=== PATIENT | female | born 1990 | race Caucasian/White ===

== ENCOUNTER 2017-05-30 20:39 | Inpatient (IN) | payer MEDICAID, OTHER ==
[~2017-05-30] VITALS: Ht 170.2 cm; Wt 102.0 kg
--- NOTE | 2017-05-31 04:06 | NUR ---
Nursing Admit note Patient arrival from [facility] at 0345. Pt transferred by S and arrived on unit via gurney with hospital security systems specialist. Pt CRISTINA r/t suicidal ideation. Pt was living at an [facility] facility where she was noted to become verbally aggressive to staff and responding to audio and visual hallucinations. Reported patient has been off her psychiatric medications for some time and reporting voices getting louder, racing thoughts and paranoia that her family in conspiring against her. Pt has been noted to be saving her urine and tampons and agitation. Pt arrival to unit oriented to room and to bed directly. CRISTINA on 05/30/17 at 2015. Patient pleasant and cooperative upon arrival.
[2017-05-31] MEDS ORDERED: Alum-Mag Hydrox-Simeth 30 mL Suspension PO PRN ×2 (04:20→12:25)
[2017-05-31] MEDS ORDERED: Benzocaine-Menthol Lozenge 2/Pkg PO PRN ×2 (04:20→12:25)
--- NOTE | 2017-05-31 06:22 | NUR ---
Night observations Pt arrived on unit in early hours of the morning. Pt briefly oriented to unit and provided with unit's scrubs. Pt's clothes were washed. Pt is oriented x3. Pt went to bed after brief orientation and appeared asleep from 0430- 0615. Pt is currently resting in bed. Staff completed 15 min close observations as ordered.
[2017-05-31 10:46] VITALS: BP 113/74; PULSE 92; RESP 18
[2017-05-31] MEDS ORDERED: Magnesium Hydroxide 10 mL Oral Concentration PO PRN (12:25)
[2017-05-31] MEDS ORDERED: HAL5 PO (13:03)
[2017-05-31] MEDS ORDERED: QUET300T44 PO (13:03)
[2017-05-31] MEDS ORDERED: LORA0.5T PO (13:03)
[2017-05-31] MEDS ORDERED: HYDR50TA76 PO (13:03)
[2017-05-31] MEDS ORDERED: BENZ1TAB7 PO (13:03)
--- NOTE | 2017-05-31 13:05 | HP ---
[address] [address] HISTORY AND PHYSICAL PATIENT: SANTA BARRETT : 1990 MR#: [id number] ADMIT: 05/31/2017 JOB ID: [id number] DATE OF SERVICE: 05/31/2017 IDENTIFICATION: This patient is a 26-year-old homeless white female currently living at a crisis center, phone number: [phone]. She has no source of income and is not on Disability. She reported that she is attempting to get on SSDI. She has a supportive mother and has been staying in the [facility]. REASON FOR ADMISSION: Client to the [facility] ER by the police department after the care center staff called concerning about violence as the client was agitated, yelling, and the staff felt threatened. When the police brought her to the emergency department, she complained of both suicidal ideation and psychosis. HISTORY OF PRESENT ILLNESS: Client presents today for evaluation and treatment of suicidal ideation and psychosis. I met with her for a 60 minute evaluation and reviewed course records kept by [facility] and [facility] staff as well [facility]. Client's main issue is poor coping. Co-occurring issues are complaints of psychosis, anxiety and depression with suicidal ideation. The condition has been present for the past 15 years. At present, it is of a severe intensity manifesting with symptoms of psychosis. The client is reportedly responding to internal stimuli, highly agitated, hearing command auditory hallucinations and wearing earplugs. She has been increasingly paranoid. She also complains of extremely high anxiety with symptoms of hyperarousal, avoidance of situations that cause her stress and intrusive recall of anxiety producing images. Finally, she complains of depression; more of an agitated depression stating when she cannot sleep, she starts having poor concentration, high guilt and has become suicidal. She had a severe suicide attempt approximately a year ago where she cut vertically on her left arm leaving a 12-13 inch deep scar. All the above symptoms are made worse when she does not take her medications (she has been off psychiatric medications for months and has only restarted in the past two months at the crisis center). It is also made much worse by drug use. She has been off methamphetamine and alcohol for the past two months but previously had been using heavily. She denies IV meth abuse. Finally, it is made worse by significant stress. She is finding that she does not have enough money or a way to make money, she has lost her friends and she is currently homeless. All of these are contributing making symptoms of depression, psychosis, anxiety and substance abuse worse. Physically she complaints to constitution, cardiac, respiratory, GI or genitourinary systems. She did have a positive UA for bacteria at [facility]. MEDICATIONS: 1. Seroquel 300 h.s. 2. Ativan 1 mg three times a day All per client report. ALLERGIES: None. ILLNESSES: None. FAMILY MEDICAL HISTORY: Noncontributory. PAST PSYCHIATRIC HISTORY: Client describes years of symptoms of depression and anxiety but states psychotic symptoms are new. She has been staying at the [facility] for the past two months. PSYCHOSOCIAL HISTORY: Client states she has one half-brother and one half-sister. Has no contact with her father but her mother is very supportive. 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 She states she has not worked for the past three years. History of trauma: Client minimized and avoided questions. Drug and alcohol use: One pack per day smoker. Previously heavy use of alcohol and meth but reports being off all substances for the past two months. Lethality: One suicide attempt approximately a year ago by wrist laceration. Currently complaining of suicidal ideation. Relationship history: Single. Catholic: None. Legal history: None. PHYSICAL EXAMINATION: Vital signs reviewed from [facility] ER physical exam and essentially normal. Urine test: Said it was ordered to [facility] but we do not have the results. Liver, electrolytes normal. CBC normal. UDS negative. MENTAL STATUS EXAMINATION: Client appeared exhausted, lying in bed with clean clothes. She had appropriate eye contact. Her behavior was lethargic and withdrawn. Attitude aloof and detached. Speech monotone, and had a difficult time hearing. Mood was dysphoric. Affect congruent. Normal intensity. Thought process: Client had a difficult time relating a coherent history. She was able to appreciate simple abstractions. She did not appear to be responding to internal stimuli. Thought content: Client describes suicidal ideation with a plan to cut her wrists. She describes auditory hallucinations, telling her she is no good and that she should complete the suicide. Client alert and oriented to person, place, and date. Immediate, short, and long-term memory intact. Attention and concentration relatively normal. Insight and judgment poor. Impulse control highly contained. Has a difficult time handling feelings of fear and anger. Reality testing: Client is having a difficult time distinguishing between inner and outer reality. Having moderate auditory hallucinations. Competence to handle current stressors is currently being overwhelmed. IMPRESSION: This patient is a 26-year-old, single, white female, currently homeless, who has been struggling with symptoms of polysubstance abuse and depression for 10 years. She now has symptoms of psychosis, appearing to have very poor impulse control, responding to internal stimuli, complaining of auditory hallucinations and paranoid delusions. She became agitated at the crisis center staff at to the point where police were called. In the ER, she asked for help but was detained as gravely disabled and a danger to self and others for suicidal ideation and ongoing psychotic symptoms. She reports being sober from methamphetamine and alcohol for two months. However her stressors have not decreased and she has not obtained better coping skills. She was using the alcohol and methamphetamine to cope; now she is not using these substances. She has very little way of handling her thoughts, anxieties or moods. The crisis center is invested in the patient as well as her mother. They are hoping that she can become stabilized on her meds and then get back to treatment. DIAGNOSES: AXIS I: 1. Psychosis, unspecified. 2. Alcohol abuse. 3. Methamphetamine abuse. AXIS II: Deferred. AXIS III: Rule out urinary tract infection. AXIS IV: Moderate. AXIS V: Current Global Assessment of Functioning equal to 35. PLAN: Recommend client be admitted to our unit and be provided with a high degree of safety, provided through the structure and active adult engagement she will receive from our staff. We will have her participate in one-to-one unit and group activities, focused on improving coping skills, reality based thinking and coming up with a safety plan should suicidal ideation recur as an outpatient. Will start the client on a combination of Seroquel 300 mg h.s. to target psychotic thought, depression and insomnia. Client is requesting a brief antianxiety agent while she is in the hospital for acute anxiety. We will start Klonopin 1 mg twice a day. Will repeat the UA to rule out urinary tract infection. Client is on a 72-hour involuntary treatment hold and I will likely petition the court for an additional 14.
--- NOTE | 2017-05-31 15:10 | NUR ---
Nursing Note [id number] Behavior S/O: Pt isolating to room today. States, "I need to think about things...what I'm going to do....I'll call my mother & my brother later today." Pt pleasant & cooperative. Conversation tracking clear & organized with normal rate & rhythm. Good eye contact. Pt cheeking clonazepam. She did swallow it when asked to. A: Pt needs evaluation for mental health. P: Provide supportive environment. Monitor medications & effects.
[2017-05-31] MEDS ORDERED: NITR100 PO (15:29)
[2017-05-31] MEDS: LORazepam 1 mg Tablet PO PRN (17:57)
[2017-05-31] MEDS: Nitrofurantoin Monohyd-Macrocryst 100 mg Capsule PO SCH (20:40)
--- NOTE | 2017-05-31 21:29 | NUR ---
OBSERVATIONS 0900 TO 2130 Pt was pleasant and cooperative with staff, isolative and antisocial. Pt appeared very anxious throughout most of the day, particularly in common areas. Pt came out of room for meals and snacks. Pt insisted on keeping earplugs shoved deep in her ears and was warned that she needed to be careful of her ear drums, she stated that noise makes her anxious so she likes to leave them in. Maintained Q15 checks for safety.
--- NOTE | 2017-05-31 22:56 | NUR ---
NURSING NOTE [id number] Mood: "pretty anxious" Affect: preoccupied, anxious Behavior: pt. mostly isolating this shift, came out several times to sit by herself for a few mins and then returned back to her room. Also out for meals. Pt. not interacting w/peers. No agitation and has been cooperative, however is visibly very anxious and restless. Pt. received 2 mg Ativan PRN @ 17:57, still visibly anxious upon reassessment and then given 50 mg Vistaril PRN at 19:32, both for 7/10 anxiety. Thought processes: anxious, disorganized, endorsed AH but did not want to tell this medical underwriter what the voices were saying. Denied SI.
--- NOTE | 2017-06-01 01:26 | NUR ---
Observations 1900 to 0700 Pt ate a snack. Pt agreed to sign admitting paperwork, but declined to have picture taken. Pt does appear highly anxious and internally preoccupied. Pt was observed laughing, talking to self. Pt spent most evening resting in bed or pacing unit. Pt was mildly social with peers. Pt appeared asleep at 2200 and has remained asleep. Pt respirations were observed when asleep. Staff completed 15 min close observations as ordered.
[2017-06-01] MEDS: Zolpidem 5 mg Tablet for FEMALE or >65YO PO PRN (02:18)
--- NOTE | 2017-06-01 05:44 | NUR ---
Nursing [id number] Pt asleep since shift started at 2300, came to common area once during the night to request food and than went back to sleep. Q 15min checks in place for safety.
[2017-06-01] MEDS: Nitrofurantoin Monohyd-Macrocryst 100 mg Capsule PO SCH ×2 (09:20→19:23)
[2017-06-01] MEDS: LORazepam 1 mg Tablet PO PRN ×2 (13:53→18:26)
--- NOTE | 2017-06-01 13:54 | NUR ---
Nursing Note [id number] Behavior S/O: Pt reported feeling anxious to [facility] early this afternoon. Talked with pt. She stated, "I'm fine. Everything is fine. I don't have hallucinations." She reports taking Seroquel 100 mg bid during the day at noon & with dinner, then 300-600 mg at HS. Pt visited with psychiatrist shortly after saying she was "fine" & was visibly upset & tremulous. Ativan 2 mg given to pt at 1330. Pt has ear plugs in her ears. A: Pt appears to responding to internal stimuli. P: Provide supportive environment. Monitor medications & effects.
--- NOTE | 2017-06-01 14:29 | PCM.PNPSY ---
Subjective Date of Service Jun 01, 2017 Subjective I spent 30 minutes both reviewing treatment plan with our clinical team, interviewing the patient and providing supportive/educational psychotherapy. I spent more than 50% of the time counseling the patient. I reviewed the treatment plan with the patient and discussed options available including the potential risks, benefits and side effects. Lin reports a slight worsening in thought organization and mood stability. Staff reports that she has been isolating and participating poorly in one-to- one unit and group activities. She slept 8 hours and complains of severe anxiety 8 out of 10 and marked symptoms of psychosis with paranoia auditory hallucinations and an exaggerated startle response. She is requesting more antipsychotic in order to help. She denies medication side effects. She was able to identify her medications and what they were used to treat. Current Medications Current Medications Clonazepam 1 mg BID PO Last administered on 06/01/17 09:19; Admin Dose 1 MG; Start 05/31/17 at 12:30 Hydroxyzine Pamoate 50 mg Q4H PRN PO Last administered on 05/31/17 19:32; Admin Dose 50 MG; Start 05/31/17 at 04:20 Lorazepam 1-2 MG Q4H PRN PO Last administered on 06/01/17 13:53; Admin Dose 2 MG; Start 05/31/17 at 04:20 Nicotine 1 patch DAILY TOPICAL Last administered on 06/01/17 09:19; Admin Dose 1 PATCH; Start 05/31/17 at 08:30 Nitrofurantoin 100 mg BID PO Last administered on 06/01/17 09:20; Admin Dose 100 MG; Start 05/31/17 at 20:30 Quetiapine Fumarate 300 mg DAILY PO Last administered on 06/01/17 09:17; Admin Dose 300 MG; Start 05/31/17 at 20:30 Zolpidem Tartrate 5 mg HS PRN PO Last administered on 06/01/17 02:18; Admin Dose 5 MG; Start 05/31/17 at 04:20 Mental Status Exam Appearance: Neat/well groomed Attitude: Pleasant, Cooperative Behavior: Tearful Affect: Labile Mood: Anxious, Fearful Thought Process/Associations: Goal Directed Speech Production: Soft Speech Rate: Lags/Latency Speech Articulation: Normal Thought Content: Somatic preoccupation, Obsessions/compulsions Danger to Self/Suicidal Ideati: None Danger to Others: None Delusions: Paranoid, Somatic Hallucinations: Auditory (Endorses) Consciousness: Hyper-vigilant Orientation: Person, Place, Date, Situation Memory: Grossly Intact Estimate Intellectual Function: Average Basis for IQ estimate: Awareness current events, Word use/vocabulary, Educational history, Employment history Attention/Concentration & Cogn: Impaired Cognitive Testing Method: Abstract Reasoning during interview, Proverb interpretation, Serial computations, Spelling forward & backward Insight: Limited Judgement: Limited Mental Health Plan This patient is a 26-year-old, single, white female, currently homeless, who has been struggling with symptoms of polysubstance abuse and depression for 10 years. She now has symptoms of psychosis, appearing to have very poor impulse control, responding to internal stimuli, complaining of auditory hallucinations and paranoid delusions. She became agitated at the crisis center staff at to the point where police were called. In the ER, she asked for help but was detained as gravely disabled and a danger to self and others for suicidal ideation and ongoing psychotic symptoms. She reports being sober from methamphetamine and alcohol for two months. However her stressors have not decreased and she has not obtained better coping skills. She was using the alcohol and methamphetamine to cope; now she is not using these substances. She has very little way of handling her thoughts, anxieties or moods. The crisis center is invested in the patient as well as her mother. They are hoping that she can become stabilized on her meds and then get back to treatment. Today she reports feeling worse and is asking for an increase of Seroquel and an antianxiety agent. [place] AXIS I: 1. Psychosis, unspecified. 2. Alcohol abuse. 3. Methamphetamine abuse. AXIS II: Deferred. AXIS III: Rule out urinary tract infection. AXIS IV: Moderate. AXIS V: Current Global Assessment of Functioning equal to 35. Medications Treatments Patient is being provided with a high degree of safety through our unit structure and active adult engagement provided by our mental health professionals, mental health technicians, psychiatric nurses and myself. We are focusing on developing improved coping skills and identifying stressors that may have led to current episode. We will attempt to: * Integrate into therapeutic groups, milieu and individual therapy. * Maintain in a closely monitored and structured unit * Provide low-stimulation environment * Obtain collateral data to assist in treatment planning * Assess degree of lability of affect and impulse control * Complete safety plan * Decrease frequency of relapse and need for re-hospitalization * Denies thoughts of harm to self and/or others * Establish a consistent sleep pattern * Medication effective in stabilization of mood and/or thought process * Reduce the risk of imminent harm to self and/or others by providing a safe environment * Tolerates medication without side effects Patient will be on the following psychiatric medications: Seroquel 100 mg twice a day and 300 at bedtime Klonopin 1 mg 3 times a day Nitrofurantoin 100 twice a day for urinary tract infection Education: Educate patient about recreational drug use as an etiology Educate about metabolic etiologies related to obesity Patient's legal status Patient is on a 72 involuntary treatment hold. Patient will be given the opportunity to talk to her radiation oncology nurse and the estate agent Anticipated number of hospital days to achieve above goals:7 Disposition: crisis center Steven Brown MD Jun 01, 2017 14:29
--- NOTE | 2017-06-01 18:15 | NUR ---
[facility] Day Shift Pt maintained behavioral control throughout the shift. Pt affect appears mostly flat, sad. Pt spends most of the shift resting in her room, citing anxiety as her reason for isolating. Pt appears more active on the unit in the evening, spending time sitting quietly in the dining room during dinner. Pt is appropriate with staff and peers when engaged, but is not overly social. Pt has not engaged in any unit activities at this time. Pt attended all meals and ate approx 60% of all meals.
--- NOTE | 2017-06-01 23:05 | NUR ---
NURSING NOTE [id number] Mood: "I have a lot of thoughts coming in, coming all around... it's a lot of thoughts" Affect: paranoid, pressured, anxious Behavior & Thought processes: pt. has been exhibiting paranoid behaviors all shift (e.g. eyes darting back and forth, wearing ear plugs, one outburst in dining room at 18:00 where she accused a staff member in the office of talking about her and called her a "fat bitch"-- able to calm down and maintain behavioral control w/reassurance from staff). She received Ativan 2 mg PRN and took her HS medications early. Pt. later took a shower.
[2017-06-02] MEDS: LORazepam 1 mg Tablet PO PRN ×3 (00:01→17:16)
[2017-06-02] MEDS: Zolpidem 5 mg Tablet for FEMALE or >65YO PO PRN ×2 (00:01→21:42)
--- NOTE | 2017-06-02 06:13 | NUR ---
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 Patient appeared disheveled. Patient was seen entering another patients room and was redirected by staff. Patient had difficulty with redirection and a few minutes later was seen entering this same patients room again, was asked to leave room and complied. Was given Ambien 5 mg and Ativan 2 mg at 0001. Returned to room and went to sleep at 0100 and remains asleep at current time with 5+ hours. Pt monitored q 15 minutes for safety, location and accountability.
[2017-06-02] MEDS: Nitrofurantoin Monohyd-Macrocryst 100 mg Capsule PO SCH ×2 (08:37→21:18)
[2017-06-02 09:00] VITALS: BP 117/80; PULSE 100
--- NOTE | 2017-06-02 14:26 | PCM.PNPSY ---
Subjective Date of Service Jun 02, 2017 Subjective I spent 30 minutes both reviewing treatment plan with our clinical team, interviewing the patient and providing supportive/educational psychotherapy. I spent more than 50% of the time counseling the patient. I reviewed the treatment plan with the patient and discussed options available including the potential risks, benefits and side effects. Lin reports a slight improvement in thought organization and mood stability. Staff reports that she has been isolating and participating poorly in one-to- one unit and group activities. She slept 5 hours and complains of continued high anxiety but a decrease in symptoms of psychosis (paranoia auditory hallucinations) and an exaggerated startle response. She is appreciating the current levels of psychiatric medications. She denies medication side effects. Current Medications Current Medications Nitrofurantoin 100 mg BID PO Last administered on 06/02/17 08:37; Admin Dose 100 MG; Start 05/31/17 at 20:30; Stop 06/04/17 at 20:30 Quetiapine Fumarate 100 mg 12,18 PO Last administered on 06/02/17 11:08; Admin Dose 100 MG; Start 06/01/17 at 18:00 Quetiapine Fumarate 300 mg DAILY PO Last administered on 06/01/17 19:22; Admin Dose 300 MG; Start 05/31/17 at 20:30; Stop 06/02/17 at 12:41; Status DC Mental Status Exam Vital Signs Vital Signs Date Time Temp Pulse Resp B/P Pulse Ox O2 Delivery O2 Flow Rate FiO2 06/02/17 09:00 36.2 100 117/80 Appearance: Neat/well groomed Attitude: Pleasant, Cooperative Behavior: Tearful Affect: Labile Mood: Anxious, Fearful Thought Process/Associations: Goal Directed Speech Production: Soft Speech Rate: Lags/Latency Speech Articulation: Normal Thought Content: Somatic preoccupation, Obsessions/compulsions Danger to Self/Suicidal Ideati: None Danger to Others: None Delusions: Paranoid, Somatic Hallucinations: Auditory (Endorses) Consciousness: Hyper-vigilant Orientation: Person, Place, Date, Situation Memory: Grossly Intact Estimate Intellectual Function: Average Basis for IQ estimate: Awareness current events, Word use/vocabulary, Educational history, Employment history Attention/Concentration & Cogn: Impaired Cognitive Testing Method: Abstract Reasoning during interview, Proverb interpretation, Serial computations, Spelling forward & backward Insight: Limited Judgement: Limited Mental Health Plan This patient is a 26-year-old, single, white female, currently homeless, who has been struggling with symptoms of polysubstance abuse and depression for 10 years. She now has symptoms of psychosis, appearing to have very poor impulse control, responding to internal stimuli, complaining of auditory hallucinations and paranoid delusions. She became agitated at the crisis center staff at to the point where police were called. In the ER, she asked for help but was detained as gravely disabled and a danger to self and others for suicidal ideation and ongoing psychotic symptoms. She reports being sober from methamphetamine and alcohol for two months. However her stressors have not decreased and she has not obtained better coping skills. She was using the alcohol and methamphetamine to cope; now she is not using these substances. She has very little way of handling her thoughts, anxieties or moods. The crisis center is invested in the patient as well as her mother. They are hoping that she can become stabilized on her meds and then get back to treatment. Today she reports mild improvement in thought organization and mood stability. She believes that the Seroquel and antianxiety medications are helping. [place] AXIS I: 1. Psychosis, unspecified. 2. Alcohol abuse. 3. Methamphetamine abuse. AXIS II: Deferred. AXIS III: Rule out urinary tract infection. AXIS IV: Moderate. AXIS V: Current Global Assessment of Functioning equal to 35. Medications Treatments Patient is being provided with a high degree of safety through our unit structure and active adult engagement provided by our mental health professionals, mental health technicians, psychiatric nurses and myself. We are focusing on developing improved coping skills and identifying stressors that may have led to current episode. We will attempt to: * Integrate into therapeutic groups, milieu and individual therapy. * Maintain in a closely monitored and structured unit * Provide low-stimulation environment * Obtain collateral data to assist in treatment planning * Assess degree of lability of affect and impulse control * Complete safety plan * Decrease frequency of relapse and need for re-hospitalization * Denies thoughts of harm to self and/or others * Establish a consistent sleep pattern * Medication effective in stabilization of mood and/or thought process * Reduce the risk of imminent harm to self and/or others by providing a safe environment * Tolerates medication without side effects Patient will be on the following psychiatric medications: Seroquel 100 mg twice a day and 300 at bedtime Klonopin 1 mg 3 times a day Nitrofurantoin 100 twice a day for urinary tract infection 5 days then discontinue up Education: Educate patient about recreational drug use as an etiology Educate about metabolic etiologies related to obesity Patient's legal status Patient is on a 72 involuntary treatment hold. Patient will be given the opportunity to talk to her patient financial services coordinator and the demonstrator sales Anticipated number of hospital days to achieve above goals:7 Disposition: crisis center Steven Brown MD Jun 02, 2017 14:26
--- NOTE | 2017-06-02 15:06 | NUR ---
Nursing 0700 to 1500 S/O: Lin requested medication at 0800. When ther was clarification needed about her seroquel med order, she acted upset. After receiving 1200 dose of seroquel, she calmed considerably, sleeping in the early afternoon. At lunch, before seroquel took effect, she became upset and tossed her drink. At 1300, although she had been sleeping, she complained of feeling anxious (at 8/10) and received Ativan 2 mg 1302. Effect: She then fell asleep again. Acknowledged . 'Not bad" Did not cheek meds today. Asked at 1250, Can I come out of my room now? for no apparent reason. When com writer was talking to her, she could not follow what was being explained. May have been attending to at same time. Wants arrangements made with crisis center before discharge. A: Psychotic sx. . P: Continue to assess for effect of scheduled meds. i Addendum: 06/02/17 at 1513 by CHRIS VIEYRA RN Amended: Links added.
--- NOTE | 2017-06-02 15:39 | NUR ---
Crew Truck Driver/Counselor S:" The voices are not to the point of needing medications." O: Patient denies any SI or HI, stated she has auditory hallucinations, rated her anxiety and depression at a 4. Patient did not state what the voices were saying. A: Patient is cooperative but tangential. Patient has stayed in her room for most of the day, but was pleasant and cooperative. P: Follow care plan and coordinate with outpatient providers.
--- NOTE | 2017-06-02 20:38 | NUR ---
Obs Dayshift Pt is paranoid, edgy w/ slight aggression when talking w/ staff. Pt appears to be responding to IS, answers my questions w/ questions. Pt spends much of her time standing in the hallway watching staff and peers. Most requests are around getting more food. Little engagement w/ peers. Good ADL's, Good meals
--- NOTE | 2017-06-02 22:45 | NUR ---
NURSING NOTE [id number] Mood: "I think I'm anxious, like, my mom isn't taking care of my brother so I'm thinking about that" Affect: paranoid, slightly pressured Behavior: pt. continues to be paranoid, this evening after other pts had gone to bed she was going up and listening with her ear against their doors. She complied w/staff's request to stop w/out issue. She has been increasingly social w/peers. She makes frequent requests for anxiety medications and does appear visibly anxious. Pt. given PRN Ativan 2 mg and Vistaril 50 mg this shift as well as PRN Ambien 5 mg. Thought processes: disorganized, delusional at times, paranoid. Denies AH/VH/SI/HI.
[2017-06-03 01:00] VITALS: BP 127/82; PULSE 103; RESP 18
--- NOTE | 2017-06-03 05:50 | NUR ---
Pt asleep at start of shift. At 0000 room checks were done and pt was not in her room. Unit was searched with security present and she was found in a male peers room crouched in a dark bathroom. When asked why she was there she stated I needed some hand financial institution president and I didnt want to bother anyone. Pt has been reminded multiple times not to enter this peers rooms and continues to disregard unit policy and boundaries. Staff positioned in hallway to monitor pts location further. Monitored pt. with 15 minute face checks for safety, location and accountability
[2017-06-03] MEDS: Nitrofurantoin Monohyd-Macrocryst 100 mg Capsule PO SCH ×2 (08:44→20:47)
--- NOTE | 2017-06-03 12:26 | PCM.PNPSY ---
Subjective Date of Service Jun 03, 2017 Subjective I spent 30 minutes both reviewing treatment plan with our clinical team, interviewing the patient and providing supportive/educational psychotherapy. I spent more than 50% of the time counseling the patient. I reviewed the treatment plan with the patient and discussed options available including the potential risks, benefits and side effects. Lin repeats feeling a slight improvement in thought organization and mood stability. Staff reports that she has been isolating and participating poorly in one-to-one unit and group activities. She slept 5 hours and complains of continued high anxiety but a decrease in symptoms of psychosis (paranoia auditory hallucinations) and an exaggerated startle response. She is appreciating the current levels of psychiatric medications. She denies medication side effects. Current Medications Current Medications Quetiapine Fumarate 100 mg 12,18 PO Last administered on 06/02/17 17:14; Admin Dose 100 MG; Start 06/01/17 at 18:00 Quetiapine Fumarate 300 mg HS PO Last administered on 06/02/17 21:18; Admin Dose 300 MG; Start 06/02/17 at 21:00 Mental Status Exam Appearance: Neat/well groomed Attitude: Pleasant, Cooperative Behavior: No unusual behavior Affect: Well Modulated/Appropriate Mood: Anxious, Fearful Thought Process/Associations: Logical/Sequential, Goal Directed Speech Production: Normal Speech Rate: Normal Speech Articulation: Normal Thought Content: Somatic preoccupation, Obsessions/compulsions Danger to Self/Suicidal Ideati: None Danger to Others: None Delusions: Paranoid, Somatic Consciousness: Hyper-vigilant Orientation: Person, Place, Date, Situation Memory: Grossly Intact Estimate Intellectual Function: Average Basis for IQ estimate: Awareness current events, Word use/vocabulary, Educational history, Employment history Attention/Concentration & Cogn: Impaired Cognitive Testing Method: Abstract Reasoning during interview, Proverb interpretation, Serial computations, Spelling forward & backward Insight: Limited Judgement: Limited Mental Health Plan This patient is a 26-year-old, single, white female, currently homeless, who has been struggling with symptoms of polysubstance abuse and depression for 10 years. She now has symptoms of psychosis, appearing to have very poor impulse control, responding to internal stimuli, complaining of auditory hallucinations and paranoid delusions. She became agitated at the crisis center staff at to the point where police were called. In the ER, she asked for help but was detained as gravely disabled and a danger to self and others for suicidal ideation and ongoing psychotic symptoms. She reports being sober from methamphetamine and alcohol for two months. However her stressors have not decreased and she has not obtained better coping skills. She was using the alcohol and methamphetamine to cope; now she is not using these substances. She has very little way of handling her thoughts, anxieties or moods. The crisis center is invested in the patient as well as her mother. They are hoping that she can become stabilized on her meds and then get back to treatment. Today she reports mild improvement in thought organization and mood stability. She believes that the Seroquel and antianxiety medications are helping. She appeared much more alert and interactive. She appears to have had an approximately 50% improvement. [place] AXIS I: 1. Psychosis, unspecified. 2. Alcohol abuse. 3. Methamphetamine abuse. AXIS II: Deferred. AXIS III: Rule out urinary tract infection. AXIS IV: Moderate. AXIS V: Current Global Assessment of Functioning equal to 35. Medications Treatments Patient is being provided with a high degree of safety through our unit structure and active adult engagement provided by our mental health professionals, mental health technicians, psychiatric nurses and myself. We are focusing on developing improved coping skills and identifying stressors that may have led to current episode. We will attempt to: * Integrate into therapeutic groups, milieu and individual therapy. * Maintain in a closely monitored and structured unit * Provide low-stimulation environment * Obtain collateral data to assist in treatment planning * Assess degree of lability of affect and impulse control * Complete safety plan * Decrease frequency of relapse and need for re-hospitalization * Denies thoughts of harm to self and/or others * Establish a consistent sleep pattern * Medication effective in stabilization of mood and/or thought process * Reduce the risk of imminent harm to self and/or others by providing a safe environment * Tolerates medication without side effects Patient will be on the following psychiatric medications: Seroquel 100 mg twice a day and 300 at bedtime Klonopin 1 mg 3 times a day Nitrofurantoin 100 twice a day for urinary tract infection 5 days then discontinue up Education: Educate patient about recreational drug use as an etiology Educate about metabolic etiologies related to obesity Patient's legal status Patient is on a 72 involuntary treatment hold. Patient will be given the opportunity to talk to her leather tacker and the private branch exchange service adviser on Friday Anticipated number of hospital days to achieve above goals:7 Disposition: crisis center Steven Brown MD Jun 03, 2017 12:26
[2017-06-03] MEDS: LORazepam 1 mg Tablet PO PRN ×2 (12:42→17:32)
--- NOTE | 2017-06-03 14:48 | NUR ---
Nursing 7a-3p Pt presents with confusion and agitation today stating "I don't know what the f*ck is going on! I am going to lose it! I don't know if my brother is safe!" Pt unable to state why she is afraid for her brother. She received Ativan 2mg po prn and Vistaril 50mg po prn for agitation. She is unable to tolerate excess stimulation and has isolated in her room for most of the day except for meals and to have her needs met. Medication helpful with no further emotional outbursts this shift.
--- NOTE | 2017-06-03 14:50 | NUR ---
Circulation Assistant/Counselor S:"I want my f*cking meds, now!" O:Patient denies any SI or HI, states she hears the voices but did not specify. Rated her anxiety and depression at a 3-4. A: Patient volatile and angry while waiting for medications. Responding to internal stimuli. Shouting and yelling. P: Follow care plan and coordinate with outpatient providers.
--- NOTE | 2017-06-03 17:31 | NUR ---
Obs Dayshift Pt is irritable, labile, negative. Pt spends most of her day in her room or in the doorway watching staff and peers. Pt is internally preoccupied, verbally aggressive, slightly threatening tone and attitude toward some peers and staff. Pt is not participating in any activities on the unit. Poor ADL's, Good meals
[2017-06-03] MEDS: Zolpidem 5 mg Tablet for FEMALE or >65YO PO PRN (20:49)
--- NOTE | 2017-06-03 22:12 | NUR ---
NURSING NOTE [id number] Mood: "anxious" Affect: pressured, paranoid, distracted at times Behavior: visible in milieu off and on, otherwise isolating to room. Requested a PRN for anxiety at dinner time and received 2 mg Ativan for 9/10 anxiety. Also asked for PRN Ambien and Vistaril 50 mg @ HS. Med compliant. Thought processes: pt continues to have paranoid ideation re: her mother and brother as well as peers on the unit. Pt. hovers near this literary writer when this literary writer attempts to have conversations w/other pts as if to eavesdrop. However, pt. has been redirectable at these times. Pt. has worn earplugs all shift. Occasional delayed responses. Disorganized thinking and tangential.
[2017-06-04] MEDS: LORazepam 1 mg Tablet PO PRN ×5 (03:19→22:08)
--- NOTE | 2017-06-04 06:03 | NUR ---
Nursing Note Mail Room Clerk 11pm-7am Patient awake and out in milieu at start of shift. Patient restless, intermittently pacing hallway. At 0310 patient came out to dining room, stating she was very anxious and couldn't sleep due to having court tomorrow. Patient stated her senior attorney was going to court for her and she wanted to sleep until after court was over. Patient was given Ativan 2 mg and Vistaril 50 mg at 0319 with good effect. Patient awoke at 0530, pacing hallway. Patient was noted to be in bed asleep from [id number] and [id number]. Pt monitored q 15 minutes for safety, location and accountability.
[2017-06-04] MEDS: Nitrofurantoin Monohyd-Macrocryst 100 mg Capsule PO SCH ×2 (08:30→20:41)
[2017-06-04 12:30] VITALS: BP 118/76; PULSE 104
--- NOTE | 2017-06-04 13:07 | NUR ---
Nursing:"I'm sorry I went on in front of everyone. I'm just nervous about court..I want meds. I want to be put to sleep. I want Haldol...that's on my med list..." Lorazepam was given at the beginning of the shift with mild effect. Pt has been med focused but fairly directable. She denies any SI/HI or thought disturbance but she at times appears to responding to internal stimuli or at least hypervigilant: "I've learned to read lips real well because I wear these earplugs" as she glances around watching others. She describes her mood as "Pretty good" She says "I think I'll be here a couple of weeks, but I need a plan. I [facility] to get into a [facility] an [facility]. I came in here to get my mind right then I need referrals for when I leave."Pt sleeping after her noon Seroquel
--- NOTE | 2017-06-04 14:04 | PCM.PNPSY ---
Subjective Date of Service Jun 04, 2017 Subjective I spent 30 minutes both reviewing treatment plan with our clinical team, interviewing the patient and providing supportive/educational psychotherapy. I spent more than 50% of the time counseling the patient. I reviewed the treatment plan with the patient and discussed options available including the potential risks, benefits and side effects. Lin repeats feeling a slight improvement in thought organization and mood stability. Staff reports that she has been more active and is now attempting to participate in one-to-one unit and group activities. She slept well but complains of continued high anxiety. She reports a marked decrease in symptoms of psychosis (paranoia auditory hallucinations). She is appreciating the current levels of psychiatric medications. She denies medication side effects. Current Medications Current Medications Quetiapine Fumarate 300 mg HS PO Last administered on 06/03/17t 20:48; Admin Dose 300 MG; Start 06/02/17 at 21:00 Mental Status Exam Vital Signs Vital Signs Date Time Temp Pulse Resp B/P Pulse Ox O2 Delivery O2 Flow Rate FiO2 06/04/17 12:30 36.7 104 118/76 Appearance: Neat/well groomed Attitude: Pleasant, Cooperative Behavior: No unusual behavior Affect: Well Modulated/Appropriate Mood: Anxious, Fearful Thought Process/Associations: Logical/Sequential, Goal Directed Speech Production: Normal Speech Rate: Normal Speech Articulation: Normal Thought Content: Somatic preoccupation, Obsessions/compulsions Danger to Self/Suicidal Ideati: None Danger to Others: None Delusions: Paranoid, Somatic Consciousness: Hyper-vigilant Orientation: Person, Place, Date, Situation Memory: Grossly Intact Estimate Intellectual Function: Average Basis for IQ estimate: Awareness current events, Word use/vocabulary, Educational history, Employment history Attention/Concentration & Cogn: Impaired Cognitive Testing Method: Abstract Reasoning during interview, Proverb interpretation, Serial computations, Spelling forward & backward Insight: Limited Judgement: Limited Mental Health Plan This patient is a 26-year-old, single, white female, currently homeless, who has been struggling with symptoms of polysubstance abuse and depression for 10 years. She now has symptoms of psychosis, appearing to have very poor impulse control, responding to internal stimuli, complaining of auditory hallucinations and paranoid delusions. She became agitated at the crisis center staff at to the point where police were called. In the ER, she asked for help but was detained as gravely disabled and a danger to self and others for suicidal ideation and ongoing psychotic symptoms. She reports being sober from methamphetamine and alcohol for two months. However her stressors have not decreased and she has not obtained better coping skills. She was using the alcohol and methamphetamine to cope; now she is not using these substances. She has very little way of handling her thoughts, anxieties or moods. The crisis center is invested in the patient as well as her mother. They are hoping that she can become stabilized on her meds and then get back to treatment. Today she repeats that she feels improvement in thought organization and mood stability. She believes that the Seroquel and antianxiety medications are helping. She appeared much more alert and interactive. [place] AXIS I: 1. Psychosis, unspecified. 2. Alcohol abuse. 3. Methamphetamine abuse. AXIS II: Deferred. AXIS III: Rule out urinary tract infection. AXIS IV: Moderate. AXIS V: Current Global Assessment of Functioning equal to 35. Medications Treatments Patient is being provided with a high degree of safety through our unit structure and active adult engagement provided by our mental health professionals, mental health technicians, psychiatric nurses and myself. We are focusing on developing improved coping skills and identifying stressors that may have led to current episode. We will attempt to: * Integrate into therapeutic groups, milieu and individual therapy. * Maintain in a closely monitored and structured unit * Provide low-stimulation environment * Obtain collateral data to assist in treatment planning * Assess degree of lability of affect and impulse control * Complete safety plan * Decrease frequency of relapse and need for re-hospitalization * Denies thoughts of harm to self and/or others * Establish a consistent sleep pattern * Medication effective in stabilization of mood and/or thought process * Reduce the risk of imminent harm to self and/or others by providing a safe environment * Tolerates medication without side effects Patient will be on the following psychiatric medications: Seroquel 100 mg twice a day and 300 at bedtime Klonopin 1 mg 3 times a day Nitrofurantoin 100 twice a day for urinary tract infection 5 days then discontinue Education: Educate patient about recreational drug use as an etiology Educate about metabolic etiologies related to obesity Patient's legal status Patient is on a 14 day involuntary treatment hold entered 06/04/2017 Anticipated number of hospital days to achieve above goals:7 Disposition: crisis center Steven Brown MD Jun 04, 2017 14:04
--- NOTE | 2017-06-04 18:40 | NUR ---
Observations 0700 - 1900 Pt affect, thought process, mood was paranoid, hyperverbal, scattered, anxious and med seeking. Pt was in and out of her room most of the shift. Pt was pleasant, polite and cooperative when approached. Pt was inappropriate a couple times but was able to be redirected. Pt was social with select peers. Pt was observed to be responding to internal stimuli. Pt attended meals in D.R. and ate 100% of her meals. Pt ate snacks. Pt took a shower and attended to ADL's. Pt was observed every 15 minutes through the shift as ordered.
[2017-06-04] MEDS: Zolpidem 5 mg Tablet for FEMALE or >65YO PO PRN ×2 (20:41→22:08)
--- NOTE | 2017-06-04 21:58 | NUR ---
NURSING NOTE [id number] Mood: "anxious" Affect: paranoid, moments of brightness and smiling in conversation Behavior: med-seeking, focused on wanting Haldol ordered and when asked why she wanted Haldol she stated "it makes me feel like I'm on something" and laughed. Pt. still showing some paranoid behaviors (e.g. prolonged, suspicious stares at select peers) but showing much improvement in that she is more social and engaged w/some of her peers and visible in milieu all shift. Thought processes: scattered, paranoid, endorses anxiety and makes frequent requests for PRNs. Denies AH/VH. No SI.
--- NOTE | 2017-06-05 04:14 | NUR ---
nursing, nights, 11-7 s/o- has appeared to sleep after 2345 during q 15 minute assessments. a- no apparent distress. p- monitor behavior/emotional state, quality, times and amount of sleep, use and effect of medication. ruth ann
[2017-06-05] MEDS: LORazepam 1 mg Tablet PO PRN ×4 (05:49→18:00)
[2017-06-05 08:00] VITALS: BP 121/76; PULSE 106; RESP 19
--- NOTE | 2017-06-05 14:04 | PCM.PNPSY ---
Subjective Date of Service Jun 05, 2017 Subjective I spent 30 minutes both reviewing treatment plan with our clinical team, interviewing the patient and providing supportive/educational psychotherapy. I spent more than 50% of the time counseling the patient. I reviewed the treatment plan with the patient and discussed options available including the potential risks, benefits and side effects. Lin repeats feeling a worsening in her thought organization and mood stability. Staff reports that she has been more active and is now attempting to participate in one-to-one unit and group activities. She slept 6 hours but complains of continued high anxiety. She reports feeling an increase in symptoms of psychosis (paranoia auditory hallucinations). She is asking for a stronger antipsychotic to be added to her medications. We reviewed the relative risks benefits and side effects of half a combination of Haldol and Seroquel. She appeared to understand the relative risks versus relative benefits. She denies medication side effects. Current Medications Current Medications Zolpidem Tartrate 5-10 MG HS PRN PO Last administered on 06/04/17t 22:08; Admin Dose 5 MG; Start 06/04/17 at 21:55 Mental Status Exam Vital Signs Vital Signs Date Time Temp Pulse Resp B/P Pulse Ox O2 Delivery O2 Flow Rate FiO2 06/05/17 08:00 35.9 106 19 121/76 Appearance: Neat/well groomed Attitude: Pleasant, Cooperative Behavior: No unusual behavior Affect: Well Modulated/Appropriate Mood: Anxious, Fearful Thought Process/Associations: Logical/Sequential, Goal Directed Speech Production: Normal Speech Rate: Normal Speech Articulation: Normal Thought Content: Somatic preoccupation, Obsessions/compulsions Danger to Self/Suicidal Ideati: None Danger to Others: None Delusions: Paranoid, Somatic Consciousness: Hyper-vigilant Orientation: Person, Place, Date, Situation Memory: Grossly Intact Estimate Intellectual Function: Average Basis for IQ estimate: Awareness current events, Word use/vocabulary, Educational history, Employment history Attention/Concentration & Cogn: Impaired Cognitive Testing Method: Abstract Reasoning during interview, Proverb interpretation, Serial computations, Spelling forward & backward Insight: Limited Judgement: Limited Mental Health Plan This patient is a 26-year-old, single, white female, currently homeless, who has been struggling with symptoms of polysubstance abuse and depression for 10 years. She now has symptoms of psychosis, appearing to have very poor impulse control, responding to internal stimuli, complaining of auditory hallucinations and paranoid delusions. She became agitated at the crisis center staff at to the point where police were called. In the ER, she asked for help but was detained as gravely disabled and a danger to self and others for suicidal ideation and ongoing psychotic symptoms. She reports being sober from methamphetamine and alcohol for two months. However her stressors have not decreased and she has not obtained better coping skills. She was using the alcohol and methamphetamine to cope; now she is not using these substances. She has very little way of handling her thoughts, anxieties or moods. The crisis center is invested in the patient as well as her mother. They are hoping that she can become stabilized on her meds and then get back to treatment. Today she reports feeling a worsening in her thought organization and mood stability. She believes that the Seroquel and antianxiety medications are helping but is asking for the addition of Haldol which is helped in the past. [place] AXIS I: 1. Psychosis, unspecified. 2. Alcohol abuse. 3. Methamphetamine abuse. AXIS II: Deferred. AXIS III: Rule out urinary tract infection. AXIS IV: Moderate. AXIS V: Current Global Assessment of Functioning equal to 35. Medications Treatments Patient is being provided with a high degree of safety through our unit structure and active adult engagement provided by our mental health professionals, mental health technicians, psychiatric nurses and myself. We are focusing on developing improved coping skills and identifying stressors that may have led to current episode. We will attempt to: * Integrate into therapeutic groups, milieu and individual therapy. * Maintain in a closely monitored and structured unit * Provide low-stimulation environment * Obtain collateral data to assist in treatment planning * Assess degree of lability of affect and impulse control * Complete safety plan * Decrease frequency of relapse and need for re-hospitalization * Denies thoughts of harm to self and/or others * Establish a consistent sleep pattern * Medication effective in stabilization of mood and/or thought process * Reduce the risk of imminent harm to self and/or others by providing a safe environment * Tolerates medication without side effects Patient will be on the following psychiatric medications: Change Seroquel to 300 at bedtime Change Klonopin to 1 mg twice a day Add Haldol 5 mg twice a day Education: Educate patient about recreational drug use as an etiology Educate about metabolic etiologies related to obesity Patient's legal status Patient is on a 14 day involuntary treatment hold entered 06/04/2017 Anticipated number of hospital days to achieve above goals:7 Disposition: crisis center Steven Brown MD Jun 05, 2017 14:03
--- NOTE | 2017-06-05 14:44 | NUR ---
NURSE NOTE DAY Mood: Endorse depression and anxiety (05/15). Affect: Labile. Thought Process/Content: Disorganized. Paranoid. Behavior: "I'm under investigation as a federal snitch." Frequent requests of staff. Distractible, disorganized. Delusional, paranoid. Denies SI, HI. Denies AH, VH. PRNs/NURS: PRNs hydroxyzine 50 mg at 0930 and 1330; lorazepam 2 mg at 1000, 1400; acetaminophen 650 mg. at 1000 and 1400.
--- NOTE | 2017-06-05 16:13 | NUR ---
Observations 0700 to 1900 Pt attended and participated in community meeting. Pt did not attend recreational activities. Pt ate a snack. Pt spends free time pacing unit and swarming nurses station for various demands. Pt unable to focus energy to any one activity. Pt is loud, intrusive in other pts care and unable to follow units policy of not going into other pts room. Pt is overly flirtacious with peers. Pts speech is pressured. Breakfast: 75%. Lunch: 100%. Staff completed 15 min close observations as ordered.
--- NOTE | 2017-06-05 18:15 | NUR ---
Hog Feeder/Counselor: S: "Don't make a big thing out of nothing!" O: Patient slept 5.5 hours last night per staff. Patient denies S/I and H/I. She also denies auditory and visual hallucinations. Depression and anxiety were not rated.. A: Patient is cooperative, anxious, irritable, paranoid, suspicious, limited insight, limited judgment. P: Follow the care plan, coordinate with out-patient providers, monitor behavior.
[2017-06-05] MEDS: Zolpidem 5 mg Tablet for FEMALE or >65YO PO PRN (20:40)
--- NOTE | 2017-06-05 23:09 | NUR ---
NURSE NOTE EVENING SHIFT [id number]: Pt has been hyper-verbal, and med-seeking today. Pt has been especially friendly with a male Pt, being reminded by staff several times to not go into each others rooms or touching. Pt has spent most of the shift in the milieu, interacting with others. Pt has had safe behavior, but negative attitude at times. Pt monitored q15 min. for safety, location and accountability.
--- NOTE | 2017-06-06 04:13 | NUR ---
nursing, nights, 11-7 s- they put me on a new med. i need juice. i need food. my back hurts. i have a urinary track infection. i hurt bad. i need tylenol. i need ativan. can i have some hot packs. why can't i have ativan. i need two hot packs. o- has appeared to sleep after 2315. up at 0200 with above requests. appeared drowsy and unhappy with staff declining to give ativan. received 650 mg of tylenol at 0200 and hot packs. returned to bed and appeared to sleep after 0230. assessed q 15 minutes. a- interupted sleep, demanding, histrionic, med seeking, no apparent physical distress. p- monitor behavior/emotional state, quality, times and amount of sleep, use and effect of medication. ruth ann
[2017-06-06 09:35] VITALS: BP 118/77; PULSE 98; RESP 16
--- NOTE | 2017-06-06 13:15 | PCM.PNPSY ---
Subjective Date of Service Jun 06, 2017 Subjective I spent 30 minutes both reviewing treatment plan with our clinical team, interviewing the patient and providing supportive/educational psychotherapy. I spent more than 50% of the time counseling the patient. I reviewed the treatment plan with the patient and discussed options available including the potential risks, benefits and side effects. Lin repeats feeling a slight improvement in her thought organization and mood stability. Staff reports that she has been more active and is now attempting to participate in one-to-one unit and group activities. She slept 5 hours but complains of continued high anxiety. She reports feeling a decrease in symptoms of psychosis (paranoia auditory hallucinations) since starting twice a day Haldol. She denies medication side effects. Current Medications Current Medications Haloperidol 5 mg ,16 PO Last administered on 06/06/17 09:49; Admin Dose 5 MG; Start 06/05/17 at 16:00 Zolpidem Tartrate 5-10 MG HS PRN PO Last administered on 06/05/17 20:40; Admin Dose 10 MG; Start 06/04/17 at 21:55 Mental Status Exam Appearance: Neat/well groomed Attitude: Pleasant, Cooperative Behavior: No unusual behavior Affect: Well Modulated/Appropriate Mood: Anxious, Fearful Thought Process/Associations: Logical/Sequential, Goal Directed Speech Production: Normal Speech Rate: Normal Speech Articulation: Normal Thought Content: Somatic preoccupation, Obsessions/compulsions Danger to Self/Suicidal Ideati: None Danger to Others: None Delusions: Paranoid, Somatic Hallucinations: Auditory (Endorses) Consciousness: Hyper-vigilant Orientation: Person, Place, Date, Situation Memory: Grossly Intact Estimate Intellectual Function: Average Basis for IQ estimate: Awareness current events, Word use/vocabulary, Educational history, Employment history Attention/Concentration & Cogn: Impaired Cognitive Testing Method: Abstract Reasoning during interview, Proverb interpretation, Serial computations, Spelling forward & backward Insight: Limited Judgement: Limited Mental Health Plan This patient is a 26-year-old, single, white female, currently homeless, who has been struggling with symptoms of polysubstance abuse and depression for 10 years. She now has symptoms of psychosis, appearing to have very poor impulse control, responding to internal stimuli, complaining of auditory hallucinations and paranoid delusions. She became agitated at the crisis center staff at to the point where police were called. In the ER, she asked for help but was detained as gravely disabled and a danger to self and others for suicidal ideation and ongoing psychotic symptoms. She reported being sober from methamphetamine and alcohol for two months prior to admission. However her stressors have not decreased and she has not obtained better coping skills. She was using the alcohol and methamphetamine to cope; now she is not using these substances. She has very little way of handling her thoughts, anxieties or moods. The crisis center is invested in the patient as well as her mother. They are hoping that she can become stabilized on her meds and then get back to treatment. Today she reports feeling a slight improvement in her thought organization and mood stability. She believes that the addition of Haldol is helping.. [place] AXIS I: 1. Psychosis, unspecified. 2. Alcohol abuse. 3. Methamphetamine abuse. AXIS II: Deferred. AXIS III: Rule out urinary tract infection. AXIS IV: Moderate. AXIS V: Current Global Assessment of Functioning equal to 35. Medications Treatments Patient is being provided with a high degree of safety through our unit structure and active adult engagement provided by our mental health professionals, mental health technicians, psychiatric nurses and myself. We are focusing on developing improved coping skills and identifying stressors that may have led to current episode. We will attempt to: * Integrate into therapeutic groups, milieu and individual therapy. * Maintain in a closely monitored and structured unit * Provide low-stimulation environment * Obtain collateral data to assist in treatment planning * Assess degree of lability of affect and impulse control * Complete safety plan * Decrease frequency of relapse and need for re-hospitalization * Denies thoughts of harm to self and/or others * Establish a consistent sleep pattern * Medication effective in stabilization of mood and/or thought process * Reduce the risk of imminent harm to self and/or others by providing a safe environment * Tolerates medication without side effects Patient will be on the following psychiatric medications: Seroquel to 300 at bedtime Klonopin to 1 mg twice a day Haldol 5 mg twice a day Education: Educate patient about recreational drug use as an etiology Educate about metabolic etiologies related to obesity Patient's legal status Patient is on a 14 day involuntary treatment hold entered 06/04/2017 Anticipated number of hospital days to achieve above goals: Recommend patient remained for an additional 5-7 days to stabilize Disposition: crisis center Steven Brown MD Jun 06, 2017 13:15
--- NOTE | 2017-06-06 17:42 | NUR ---
Observations 0700 - 1900 Pt was in her room most of the shift. Pt was pleasant, polite and cooperative when approached. Pt was inappropriate a couple times but was able to be redirected. Pt was social with select peers. Pt was observed to be responding to internal stimuli. Pt attended meals in D.R. and ate 100% of her meals. Pt ate snacks. Pt maintained behavior throughout the shift other than being in another patients room. Pt was observed every 15 minutes through the shift as ordered.
--- NOTE | 2017-06-06 18:30 | NUR ---
Nursing Notes [id number] S: "I am burning when I pee, I was on an antibiotic". O: Patient isolative, feels she is doing better now that I have slept some. Asleep much of the day. A: Blunted/flat, isolative. P: Monitor for safety and response to treatment. Follow plan of care.
[2017-06-06] MEDS: LORazepam 1 mg Tablet PO PRN (18:48)
--- NOTE | 2017-06-06 20:16 | NUR ---
Mirror [employer] Supervisor/Counselor: S: "The haldol helps!" O: Patient slept 4.75 hours last night per staff. Patient denies S/I and H/I. She also denies auditory and visual hallucinations. Depression and anxiety were not rated. When asked her mood, patient stated, "I feel alright." Patient is a lot less paranoid today. A: Patient is cooperative, anxious, irritable, less paranoid, less suspicious, limited insight, limited judgment. P: Follow the care plan, coordinate with out-patient providers, monitor behavior.
[2017-06-06] MEDS: Zolpidem 5 mg Tablet for FEMALE or >65YO PO PRN (22:01)
--- NOTE | 2017-06-07 06:54 | NUR ---
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 Monitor with q 15 minute face checks for safety, location and accountability
[2017-06-07] MEDS: LORazepam 1 mg Tablet PO PRN ×2 (10:44→17:36)
[2017-06-07 11:17] LABS: APPEARANCE,URINE HAZY (CLEAR,HAZY); COLOR,URINE YELLOW (YELLOW); OCCULT BLOOD,URINE NEGATIVE (NEGATIVE); UROBILINOGEN,URINE NORMAL (NORMAL)
[2017-06-07 14:15] VITALS: BP 126/78; PULSE 99; RESP 15
--- NOTE | 2017-06-07 15:55 | PCM.PNPSY ---
Subjective Date of Service Jun 07, 2017 Subjective The patient reports that she is "good, tired. A little depressed because I am here on my birthday." Patient does report that she received a small birthday cake. She reports that following depression in the . She received sertraline 50 mg which she felt was helpful for her depression. She also reports that it was helpful for her focus and attention. Although requesting "something for ADHD" the patient responded to a discussion regarding the difficulty in prescribing dopaminergic medications in the context of psychosis. The patient also reported left hip pain several months duration and demonstrated an audible clicking noise with flexion. We discussed simplification of her medication regimen and the patient was agreeable. No side effects reported. Sleep: 8 hours. Appetite: "A lot better" Suicidal and homicidal ideation: Denies Auditory hallucinations: Denies Visual hallucinations: Denies Other Psychotic Symptoms: N/A Anxiety: 0/10 Depression: 7/10 Current Medications Current Medications Haloperidol 5 mg 09,16 PO Last administered on 06/07/17 08:31; Admin Dose 5 MG; Start 06/05/17 at 16:00 Ibuprofen 400 mg Q6H PRN PO Last administered on 06/06/17 18:47; Admin Dose 400 MG; Start 06/06/17 at 20:00 Mental Status Exam Appearance: Neat/well groomed Attitude: Pleasant, Cooperative Behavior: No unusual behavior Affect: Well Modulated/Appropriate Mood: Dysthymic Thought Process/Associations: Logical/Sequential, Goal Directed Speech Production: Normal Speech Rate: Normal Speech Articulation: Normal Thought Content: Somatic preoccupation Danger to Self/Suicidal Ideati: None Danger to Others: None Delusions: Paranoid, Somatic Hallucinations: Auditory (Denies), Visual (Denies) Consciousness: Somnolent (mildly) Orientation: Person, Place, Date, Situation Memory: Grossly Intact Estimate Intellectual Function: Average Basis for IQ estimate: Word use/vocabulary, Educational history, Employment history Attention/Concentration & Cogn: Impaired Insight: Limited Judgement: Limited Mental Health Plan The patient is a 26-year-old, single female with substance use and depression for the last 10 years. The patient was admitted with signs of psychosis with poor impulse control, responding to internal stimuli, auditory hallucinations, and paranoid delusions. She became agitated at the crisis center staff to the point where police were called. In the ER, she was detained as gravely disabled and a danger to self and others for suicidal ideation and ongoing psychotic symptoms. The patient had previously been using alcohol and methamphetamine as a coping mechanism but has been reportedly sober for the last 2 months. Once stabilized the patient will go back into treatment. The patient reports needing both Haldol and quetiapine. Due to the sedation we discussed consolidating quetiapine at bedtime and later in the day and the patient was agreeable. The patient would also like to restart Zoloft and given her long history of depression this may help to reduce her use of antipsychotics. There does not appear to be a significant risk of manic flipping. [place] AXIS I: 1. Psychosis, unspecified. 2. Alcohol use disorder in partial remission 3. Methamphetamine use disorder in partial remission Depressive disorder unspecified by history AXIS II: Deferred. AXIS III: Rule out urinary tract infection. AXIS IV: Moderate. AXIS V: Current Global Assessment of Functioning equal to 35. Treatments 1. The patient is admitted to the inpatient unit and will be provided a safe and secure environment. 2. The patient is denying current active suicidality and is not in need of a one-to-one at this time. 3. The patient is encouraged to participate with group and milieu activities. 4. The patient will be seen by the treatment team on a daily basis to assess symptoms, side effects and response to treatment. 5. Change quetiapine to 100 mg at 4 PM and 400 mg nightly. 6. Continue other medications as written. 7. Sertraline 50 mg daily for depression. 8. Hospitalist page for consultation regarding hip pain, awaiting callback. 9. Anticipated length of stay is 5-7 days. Alirio Munoz MD Jun 07, 2017 15:55 Education: Educate patient about recreational drug use as an etiology Educate about metabolic etiologies related to obesity Patient's legal status Patient is on a 14 day involuntary treatment hold entered 06/04/2017 Anticipated number of hospital days to achieve above goals: Recommend patient remained for an additional 5-7 days to stabilize Disposition: crisis center Alirio Munoz MD Jun 07, 2017 15:55
--- NOTE | 2017-06-07 16:49 | NUR ---
Observations 1900 to 0700 Pt ate a snack. Pt spent much of shift resting in room. Pt showered and had clothes washed. She was also mildly social with peers. A birthday cake was sent up from kitchen for her birthday. Pt stated her mom is going to mail her some belongings. Pt maintained behavioral control and showed no signs of abnormal behavior. Pt respirations were observed when asleep. Staff completed 15 min close observations as ordered.
--- NOTE | 2017-06-07 18:49 | NUR ---
Nursing Notes [id number] S:O: Patient asking multiple staff and refused a 3rd breakfast, patient then angry, stomped down hallway, slammed door and then screamed in room. May have been seen coming from a male patients room early this morning. A: Isolative, manipulative, attempting to staff split. P: Monitor for safety and response to treatment. Follow plan of care. Addendum: 06/07/17 at 1849 by SHARAN DIAS RN PRWinter 10:45 Ativan 1 mg po for anxiety. Effective. Vistaril 50 mg po for anxiety. Effective.
[2017-06-07] MEDS: Zolpidem 5 mg Tablet for FEMALE or >65YO PO PRN ×2 (20:18→20:56)
--- NOTE | 2017-06-07 21:56 | NUR ---
Nurses Note Evening "I have toilet paper in my ear,I need a tweezer to get it out." Patient denied pain or discomfort,no evidence of a foreign body was found. Patients' thoughts have been scattered and focused on medications requesting medications almost hourly. She has been mumbling under her breathe talking to herself. Patient has been social with peers at times. Will reality test as tolerated,encourage improved coping skills. Addendum: 06/07/17 at 4174 by BERTHA HOLLINGSWORTH RN Amended: Links added.
--- NOTE | 2017-06-08 04:34 | NUR ---
nursing, nights, 11-7 s- will you make her give me something to eat ? can i have something for sleep ? o- has appeared to sleep after 0. came to staff at 0300 and received 50 mg of vistaril. appeared to sleep after 0330. assessed q 15 minutes. a- no apparent distress. p- monitor behavior/emotional state, quality, times and amount of sleep, use and effect of medication. ruth ann
[2017-06-08 10:00] VITALS: BP 130/80; PULSE 103; RESP 16
[2017-06-08] MEDS: LORazepam 1 mg Tablet PO PRN (11:52)
--- NOTE | 2017-06-08 13:45 | NUR ---
Vistaril 50mg po prn requested and given for anxiety rated 5/10.
--- NOTE | 2017-06-08 14:45 | PCM.PNPSY ---
Subjective Date of Service Jun 08, 2017 Subjective The patient reports, "I am tired and I am to wake up more." She also reports that her mood is overall improved. She reported to nursing staff that she stuffed toilet paper into her ear, nursing staff could not see any paper and the patient declined examination at this time. The patient reports that she would like to go to a group home upon discharge. She reports that she is still irritable and feeling depressed and that she needs the medication to begin to work a little bit. She denies side effects to medications. Sleep: 7.5 hours Appetite: "Okay" Suicidal and homicidal ideation: Denies Auditory hallucinations: Denies Visual hallucinations: Denies Other Psychotic Symptoms: Easily irritated/irritable Anxiety: "Don't have any yet" Depression: "Still there" 5-6/10 Current Medications Current Medications Ibuprofen 400 mg Q6H PRN PO Last administered on 06/07/17 19:22; Admin Dose 400 MG; Start 06/06/17 at 20:00 Quetiapine Fumarate 400 mg HS PO Last administered on 06/07/17 20:12; Admin Dose 400 MG; Start 06/07/17 at 21:00 Sertraline HCl 50 mg DAILY PO Last administered on 06/08/17 08:48; Admin Dose 50 MG; Start 06/08/17 at 08:30 Mental Status Exam Vital Signs Vital Signs Date Time Temp Pulse Resp B/P Pulse Ox O2 Delivery O2 Flow Rate FiO2 06/08/17 10:00 36.1 103 16 130/80 Appearance: Neat/well groomed Attitude: Cooperative (mildly irritable) Behavior: No unusual behavior Affect: Well Modulated/Appropriate Mood: Irritable, Dysthymic Thought Process/Associations: Logical/Sequential, Goal Directed Speech Production: Normal Speech Rate: Normal Speech Articulation: Normal Thought Content: Somatic preoccupation Danger to Self/Suicidal Ideati: None Danger to Others: None Delusions: Paranoid, Somatic Hallucinations: Auditory (Denies), Visual (Denies) Consciousness: Somnolent (mildly) Orientation: Person, Place, Date, Situation Memory: Grossly Intact Estimate Intellectual Function: Average Basis for IQ estimate: Word use/vocabulary, Educational history, Employment history Attention/Concentration & Cogn: Impaired Insight: Limited Judgement: Limited Mental Health Plan The patient is a 26-year-old, single female with substance use and depression for the last 10 years. The patient was admitted with signs of psychosis with poor impulse control, responding to internal stimuli, auditory hallucinations, and paranoid delusions. She became agitated at the crisis center staff to the point where police were called. In the ER, she was detained as gravely disabled and a danger to self and others for suicidal ideation and ongoing psychotic symptoms. The patient had previously been using alcohol and methamphetamine as a coping mechanism but has been reportedly sober for the last 2 months. Once stabilized the patient will go back into treatment. The patient reports needing both Haldol and quetiapine. Due to the sedation we discussed consolidating quetiapine at bedtime and later in the day and the patient was agreeable. The patient reports no side effects to the sertraline but also no significant change in her depression. The patient would like to be discharged group home but we discussed the possibility of crisis respite and she was agreeable to at least investigating this option. The patient declined physical exam as noted above. [place] AXIS I: 1. Psychosis, unspecified. 2. Alcohol use disorder in partial remission 3. Methamphetamine use disorder in partial remission 4. Depressive disorder unspecified by history AXIS II: Deferred. AXIS III: None acute AXIS IV: Moderate. AXIS V: Current Global Assessment of Functioning equal to 40. Medications Hydroxyzine 50 mg every 4 hours when necessary anxiety or agitation Lorazepam 1-2 mg every 4 hours when necessary anxiety or agitation Nicotine 21 mg patch daily + commit lozenge Clonazepam 0.5 mg twice daily Haloperidol 5 mg at 9 and 4 PM Sertraline 50 mg daily Zolpidem 5-10 mg nightly as needed Treatments 1. The patient is admitted to the inpatient unit and will be provided a safe and secure environment. 2. The patient is denying current active suicidality and is not in need of a one-to-one at this time. 3. The patient is encouraged to participate with group and milieu activities. 4. The patient will be seen by the treatment team on a daily basis to assess symptoms, side effects and response to treatment. 5. Decrease clonazepam to 0.5 mg twice daily in preparation for discharge 6. Continue other medications as written. 7. Hospitalist paged her for consultation regarding hip pain, recommends referral to outpatient PT for hip pain. 8. Anticipated length of stay is 5-7 days. Alirio Munoz MD Jun 08, 2017 14:45
--- NOTE | 2017-06-08 18:22 | NUR ---
Nursing Notes [id number] S: "I am not awake enough to know yet". O: Patient not wanting to talk to staff-reporting she just woke up-but then goes right back to bed. Multiple attempts made this shift. Anxiety 12/13. Reports that she is unable to rate depression or head ache pain. Denied SI/HI or hallucinations. A: Blunted, medication focused. P: Monitor for safety and response to treatment. Follow plan of care. Addendum: 06/08/17 at 1822 by SHARAN DIAS RN [place] 11:52 Ativan 1 mg po for anxiety 12/13. 14:45 Vistaril 50 mg po for anxiety patient unable to rate. Motrin 400mg for headache pain patient unable to rate.
--- NOTE | 2017-06-08 21:13 | NUR ---
Observations 0900 - 2130 Pt affect and mood was anxious, isolative, guarded, withdrawn and irritable at times. Pt was in her room most of the shift. Pt was pleasant, polite and cooperative when approached for the most part. Pt speech was rambling and pressured. Pt eye contact was good. Pt was social with select peers. Pt was preoccupied and was observed to be responding to internal stimuli. Pt attended meals in D.R. and ate 100% of her meals. Pt ate snacks. Pt declined coming to community meeting. Pt refused to set a daily goal. Pt was observed every 15 minutes through the shift as ordered.
[2017-06-08] MEDS: Zolpidem 5 mg Tablet for FEMALE or >65YO PO PRN (21:15)
--- NOTE | 2017-06-09 06:04 | NUR ---
Nursing Note Outcomes Manager 7pm-7am Patient was asleep in room at start of shift. She came out to dining room for evening snack and HS medications at 2114, and returned to room. Patient affect was flat. Returned to med room door at 2129 with complaints of a toothache and requested ibuprofen. Was given 400 mg Motrin at 2133 and returned to room and went to sleep. Patient slept 8.75+ hours. Pt monitored q 15 minutes for safety, location and accountability.
[2017-06-09 12:47] VITALS: BP 121/76; PULSE 101; RESP 16
[2017-06-09] MEDS: LORazepam 1 mg Tablet PO PRN ×3 (12:53→18:16)
--- NOTE | 2017-06-09 12:54 | NUR ---
PRN Medication Pt requested and received Tylenol 650 mg po prn for mouth pain rated 8/10. She also requested and received Ativan 1mg po prn for felt anxiety.
--- NOTE | 2017-06-09 14:59 | NUR ---
Nursing Dayshift: S: "I'm really anxious." O: Patient has been complaining of increased anxiety today receiving Ativan 1 mg PO twice at 1253 and at 1432 with minimal effectiveness. C/o a headache and received Tylenol 650 mg at 1253 with effective relief per patient. Good appetite at meals. Has been making needs known. Showered today. Out of her room more this afternoon. A: Isolative. Responding to IS. P: CPOC. Monitor mood and behavior.
--- NOTE | 2017-06-09 15:29 | PCM.PNPSY ---
Subjective Date of Service Jun 09, 2017 Subjective The patient reports that she is doing better but still not ready for discharge. She reports that she is still fairly depressed and sertraline has not had sufficient time to work or to determine its efficacy. Patient would like to get back to work but is not sure how to manage having any mental illness or needing follow-up. Discussed the recommendation to pursue crisis respite and the patient was agreeable. The patient denies side effects. Sleep: 7.75 hours, "fine" Appetite: Decreased somewhat but accepted by patient. Suicidal and homicidal ideation: Denies Auditory hallucinations/Visual hallucinations: Denies Other Psychotic Symptoms: Some irritability Anxiety: 7/10 this morning, 3-01/13 following lorazepam. Depression: 03/15 Current Medications Current Medications Clonazepam 0.5 mg BID PO Last administered on 06/09/17 08:57; Admin Dose 0.5 MG ; Start 06/08/17 at 20:30 Quetiapine Fumarate 100 mg 16 PO Last administered on 06/08/17 16:38; Admin Dose 100 MG; Start 06/08/17 at 16:00 Quetiapine Fumarate 400 mg HS PO Last administered on 06/08/17 21:10; Admin Dose 400 MG; Start 06/07/17 at 21:00 Sertraline HCl 50 mg DAILY PO Last administered on 06/09/17 08:57; Admin Dose 50 MG; Start 06/08/17 at 08:30 Mental Status Exam Vital Signs Vital Signs Date Time Temp Pulse Resp B/P Pulse Ox O2 Delivery O2 Flow Rate FiO2 06/09/17 12:47 36.4 101 16 121/76 Appearance: Neat/well groomed Attitude: Cooperative Behavior: Overtly anxious (rocking) Affect: Well Modulated/Appropriate Mood: Dysthymic, Anxious Thought Process/Associations: Logical/Sequential, Goal Directed Speech Production: Normal Speech Rate: Normal Speech Articulation: Normal Thought Content: Negativistic (mildly) Danger to Self/Suicidal Ideati: None Danger to Others: None Delusions: Paranoid, Somatic Hallucinations: Auditory (Denies), Visual (Denies) Consciousness: Alert Orientation: Person, Place, Date, Situation Memory: Grossly Intact Estimate Intellectual Function: Average Basis for IQ estimate: Word use/vocabulary, Educational history, Employment history Attention/Concentration & Cogn: Impaired Insight: Limited (but improving) Judgement: Limited (but improving) Mental Health Plan The patient is a 26-year-old, single female with substance use and depression for the last 10 years. The patient was admitted with signs of psychosis with poor impulse control, responding to internal stimuli, auditory hallucinations, and paranoid delusions. She became agitated at the crisis center staff to the point where police were called. In the ER, she was detained as gravely disabled and a danger to self and others for suicidal ideation and ongoing psychotic symptoms. The patient had previously been using alcohol and methamphetamine as a coping mechanism but has been reportedly sober for the last 2 months. Once stabilized the patient will go back into treatment. The patient reports needing both Haldol and quetiapine. Due to the sedation we discussed consolidating quetiapine at bedtime and later in the day and the patient was agreeable. The patient reports no side effects to the sertraline but also no significant change in her depression. The patient would like to stabilize further prior to discharge to crisis respite. Discussed having outpatient follow-up for her left hip issues per hospitalist recommendation. Patient is agreeable with this plan. [place] AXIS I: 1. Psychosis, unspecified. 2. Alcohol use disorder in partial remission 3. Methamphetamine use disorder in partial remission 4. Depressive disorder unspecified by history AXIS II: Deferred. AXIS III: None acute AXIS IV: Moderate. AXIS V: Current Global Assessment of Functioning equal to 40. Medications Hydroxyzine 50 mg every 4 hours when necessary anxiety or agitation Lorazepam 1-2 mg every 4 hours when necessary anxiety or agitation Nicotine 21 mg patch daily + commit lozenge Clonazepam 0.5 mg twice daily Haloperidol 5 mg at 9 and 4 PM Sertraline 50 mg daily Zolpidem 5-10 mg nightly as needed Treatments 1. The patient is admitted to the inpatient unit and will be provided a safe and secure environment. 2. The patient is denying current active suicidality and is not in need of a one-to-one at this time. 3. The patient is encouraged to participate with group and milieu activities. 4. The patient will be seen by the treatment team on a daily basis to assess symptoms, side effects and response to treatment. 5. Decrease clonazepam to 0.5 mg twice daily in preparation for discharge 6. Continue other medications as written. 7. Hospitalist recommends referral to outpatient/PT for hip pain. 8. Anticipated length of stay is 5-7 days. Alirio Munoz MD Jun 09, 2017 15:29
--- NOTE | 2017-06-09 17:10 | NUR ---
Observations 0900 - 1730 Pt affect and mood was anxious, isolative, guarded and unsocial. Pt was in her room most of the morning and out in milieu in the late afternoon. Pt was pleasant, polite and cooperative when approached. Pt speech and eye contact was good. Pt was social with select peers but mostly kept to herself. Pt attended meals in D.R. and ate 100% of her meals. Pt ate snacks. Pt declined coming to community meeting. Pt refused to set a daily goal. Pt took a shower and attended to ADL's. Pt was observed every 15 minutes through the shift as ordered.
--- NOTE | 2017-06-09 17:19 | NUR ---
Cubing Machine Tender/Counselor S:"I don't want to go to an [facility]. I want to go to a jail where I can eat." O: Patient denies any SI or HI, no AVH, rated her anxiety at a 4 and her depression at a 6. A: Patient stated that she did not have the money for an [facility] and was hoping to stay in the area. She is interested in Crisis [facility]. Patient stated that she would like to eat less and lose some weight. P: Follow care plan and coordinate with outpatient providers. Patient will call [facility] for assessment.
[2017-06-09] MEDS: Zolpidem 5 mg Tablet for FEMALE or >65YO PO PRN ×2 (20:21→20:22)
--- NOTE | 2017-06-10 01:11 | NUR ---
Observations 1900 to 0700 Pt ate a snack. Pt spends much of free time resting in room. Pts affect appears paranoid, mildly anxious. Pt maintained behavioral control, though appears to be responding to internal stimuli. Pt appeared asleep at 2230 and has remained asleep. Pt respirations were observed when asleep. Staff completed 15 min close observations as ordered.
--- NOTE | 2017-06-10 06:34 | NUR ---
Nursing Note Privacy Director 7pm-7am Patient isolating in room at start of shift. She came out to dining room for evening snack and HS medications, and returned to room. Patient reported a toothache after eating popcorn and requested ibuprofen. Was given 400 mg Motrin at 2044 and returned to room and went to sleep. Patient slept 7.5+ hours. Pt monitored q 15 minutes for safety, location and accountability.
[2017-06-10] MEDS: LORazepam 1 mg Tablet PO PRN (12:09)
[2017-06-10] MEDS ORDERED: Lidocaine 2% 6mL Topical Jelly TOPICAL ONE (14:15)
--- NOTE | 2017-06-10 15:50 | PCM.PNPSY ---
Subjective Date of Service Jun 10, 2017 Subjective The patient reports having a migraine headache today as well as dental pain. Examination of dentition reveals a retained roots in the right upper molars as well as what appears to be a cavity and adjacent tooth. There is no evidence of discharge or swelling. The patient also requests to move up her quetiapine dose that she is experiencing some auditory hallucinations. She requests an increase in her pain medication. She reports that she is still fairly depressed and is agreeable to increasing sertraline 100 mg daily. Discussed the recommendation to pursue crisis respite and the patient was agreeable. The patient denies side effects. Sleep: 7.5 hours, "fine" Appetite: "Fine" Suicidal and homicidal ideation: Denies Auditory hallucinations: Endorses as above Visual hallucinations: Denies Other Psychotic Symptoms: Some irritability Anxiety: "Alright" Depression: 6/10 Current Medications Current Medications Clonazepam 0.5 mg BID PO Last administered on 06/10/17 09:09; Admin Dose 0.5 MG ; Start 06/08/17 at 20:30 Lidocaine HCl 6 ml ONCE ONCE TOPICAL Last administered on 06/10/17 15:36; Admin Dose 6 ML; Start 06/10/17 at 14:15; Stop 06/10/17 at 14:20; Status DC Quetiapine Fumarate 100 mg 16 PO Last administered on 06/10/17 14:08; Admin Dose 100 MG; Start 06/08/17 at 16:00 Sertraline HCl 50 mg ONCE ONCE PO Last administered on 06/10/17 15:36; Admin Dose 50 MG; Start 06/10/17 at 14:15; Stop 06/10/17 at 14:20; Status DC Mental Status Exam Appearance: Neat/well groomed Attitude: Cooperative Behavior: Overtly anxious Affect: Well Modulated/Appropriate Mood: Dysthymic, Anxious Thought Process/Associations: Logical/Sequential, Goal Directed Speech Production: Normal Speech Rate: Normal Speech Articulation: Normal Thought Content: Negativistic (mildly) Danger to Self/Suicidal Ideati: None Danger to Others: None Delusions: Somatic Hallucinations: Auditory (Endorses), Visual (Denies) Consciousness: Alert Orientation: Person, Place, Date, Situation Memory: Grossly Intact Estimate Intellectual Function: Average Basis for IQ estimate: Word use/vocabulary, Educational history, Employment history Attention/Concentration & Cogn: Impaired Insight: Limited (but improving) Judgement: Limited (but improving) Mental Health Plan The patient is a 26-year-old, single female with substance use and depression for the last 10 years. The patient was admitted with signs of psychosis with poor impulse control, responding to internal stimuli, auditory hallucinations, and paranoid delusions. She became agitated at the crisis center staff to the point where police were called. In the ER, she was detained as gravely disabled and a danger to self and others for suicidal ideation and ongoing psychotic symptoms. The patient had previously been using alcohol and methamphetamine as a coping mechanism but has been reportedly sober for the last 2 months. Once stabilized the patient will go back into treatment. The patient reports needing both Haldol and quetiapine. The patient reports dental pain and there is evidence of dental decay but no acute abscess formation. Discussed using ibuprofen and lidocaine gel. The patient was agreeable with this plan. She will need outpatient dental follow-up. The patient was agreeable to increasing sertraline to 100 mg daily to better address depression. The patient would like to stabilize further prior to discharge to crisis respite. Discussed having outpatient follow-up for her left hip issues per hospitalist recommendation. Patient is agreeable with this plan. [place] AXIS I: 1. Psychosis, unspecified. 2. Alcohol use disorder in partial remission 3. Methamphetamine use disorder in partial remission 4. Depressive disorder unspecified by history AXIS II: Deferred. AXIS III: None acute AXIS IV: Moderate. AXIS V: Current Global Assessment of Functioning equal to 40. Medications Hydroxyzine 50 mg every 4 hours when necessary anxiety or agitation Lorazepam 1-2 mg every 4 hours when necessary anxiety or agitation Nicotine 21 mg patch daily + commit lozenge Clonazepam 0.5 mg twice daily Haloperidol 5 mg at 9 and 4 PM Sertraline 100 mg daily Zolpidem 5-10 mg nightly as needed Treatments 1. The patient is admitted to the inpatient unit and will be provided a safe and secure environment. 2. The patient is denying current active suicidality and is not in need of a one-to-one at this time. 3. The patient is encouraged to participate with group and milieu activities. 4. The patient will be seen by the treatment team on a daily basis to assess symptoms, side effects and response to treatment. 5. Continue clonazepam 0.5 mg twice daily in preparation for discharge with plan for further reduction 6. Increase ibuprofen to 800 mg 3 times daily as needed 7. Lidocaine gel for dental pain. 8. Increase sertraline to 100 mg daily 9. Hospitalist recommends referral to outpatient/PT for hip pain 10. The patient will need outpatient follow-up dental for extraction of retained recent and cavity repair 11. Anticipated length of stay is 5-7 days. Alirio Munoz MD Jun 10, 2017 15:50
--- NOTE | 2017-06-10 16:28 | NUR ---
Observations [id number] Pt isolated to room for much of shift, coming out mainly for food and drink. Pt appears to have a large appetite and ask for food often. She was observed in dining area appearing to be anxious as well as paranoid at times. Pt was also seen laughing at times and looking internally preoccupied. Pt did not interact much with peers, slept a lot in afternoon. She attended all meals eating 100%. Pt was observed every 15 minutes of shift as directed.
--- NOTE | 2017-06-10 17:31 | NUR ---
Steam Shovel Runner/Counselor S:"I don't have any support back at home." O: Patient denies any SI or HI, no anxiety or depression, and stated her hallucinations were doing "alright". A: Patient has been secluded to her room for most of the day. Responding to internal stimuli. Pleasant and cooperative. P: Follow care plan and coordinate with outpatient providers.
--- NOTE | 2017-06-10 18:39 | NUR ---
Nursing Day Shift: Patient has been in her room much of the shift. Comes out for meals, snacks, and requests. received her haldol and Seroquel due at 1600 at 1400 per MD. Patient states it being helpful for AH and anxiety. Good appetite at meals. Monitor mood and behavior.
[2017-06-10] MEDS: Zolpidem 5 mg Tablet for FEMALE or >65YO PO PRN ×2 (20:00→20:12)
--- NOTE | 2017-06-11 06:28 | NUR ---
NIGHT NURSE NOTE [id number]: Pt was in bed at the beginning of the shift and stayed there for most of the night. Pt slept 8 hrs. Pt monitored q15min for location, safety and accountability.
--- NOTE | 2017-06-11 10:43 | NUR ---
Nursing 7a-3p Pt requested and received prn Haldol for anxiety she rated as "High". She reports "The Haldol is not helping, I thought it would. I am having some voices. Can I have something else?" Pt received Vistaril 50 mg po prn for expressed anxiety. A half an hour later she reports her anxiety decreased to 6/10. She is talking in a loud voice and appears distracted when speaking with her. When asked by this staff if she would like to go to morning group she stated "Group can be group. I don't need to take part in group. What do I need to do start screaming?" Pt walked away from this staff member. Pt out for meals and snacks but otherwise spending a majority of her time in her room. Pt has had no behavioral outbursts. Assess medication efficacy, AH and mood through the day. Provide support as needed. Addendum: 06/11/17 at 1307 by MARKIE SPENCER RN Pt continues to c/o anxiety and voices. She reports it is one voice "all over my head." Verbal order received to give Seroquel 100mg po early. Addendum: 06/11/17 at 1349 by MARKIE SPENCER RN Now dose of Seroquel 100mg po given @ 1301.
[2017-06-11 11:33] VITALS: BP 124/76; PULSE 105; RESP 18
[2017-06-11] MEDS ORDERED: Lidocaine 2% 6mL Topical Jelly TOPICAL PRN (12:20)
[2017-06-11] MEDS: LORazepam 1 mg Tablet PO PRN ×2 (12:25→17:07)
--- NOTE | 2017-06-11 17:10 | NUR ---
Nurses PRN Patient requesting Haldol for restlessness and increasing anxiety as she rocked back and forth at the medication room door,received Ativan 2mg and Vistaril 50mg PO for above,will assess response.
--- NOTE | 2017-06-11 18:05 | NUR ---
[facility] Day Shift Pt maintained behavioral control throughout the shift. Pt affect appears mostly flat, irritable. Pt spends most of the shift resting in her room and pacing the unit. Pt is appropriate with staff and peers when engaged, but is not overly social and is occasionally irritable during interactions with staff. Pt did not attend community meeting and has not engaged in any unit activities at this time. Pt attended all meals and ate approx 80% of all meals.
[2017-06-11] MEDS: Zolpidem 5 mg Tablet for FEMALE or >65YO PO PRN (20:45)
--- NOTE | 2017-06-11 22:24 | PCM.PNPSY ---
Subjective Date of Service Jun 11, 2017 Subjective The patient complains of body aches. Reports that lidocaine jelly helpful but reports additional painful tooth. No inflammation or swelling on physical exam. Patient reported auditory hallucinations bothering her today. No side effects. Sleep: 8 hours Appetite: "okay" Suicidal and homicidal ideation: denies Auditory hallucinations: reports increased this afternoon Visual hallucinations: denies Other Psychotic Symptoms: N/A Anxiety/Depression: "a lot better" Current Medications Current Medications Ibuprofen 800 mg TID PRN PO Last administered on 06/11/17 16:05; Admin Dose 800 MG; Start 06/10/17 at 14:15 Lidocaine HCl 6 ml ONCE ONCE TOPICAL Last administered on 06/10/17 15:36; Admin Dose 6 ML; Start 06/10/17 at 14:15; Stop 06/10/17 at 14:20; Status DC Sertraline HCl 50 mg ONCE ONCE PO Last administered on 06/10/17 15:36; Admin Dose 50 MG; Start 06/10/17 at 14:15; Stop 06/10/17 at 14:20; Status DC Sertraline HCl 100 mg DAILY PO Last administered on 06/11/17 08:12; Admin Dose 100 MG; Start 06/11/17 at 08:30 Mental Status Exam Vital Signs Vital Signs Date Time Temp Pulse Resp B/P Pulse Ox O2 Delivery O2 Flow Rate FiO2 06/11/17 11:33 36.0 105 18 124/76 Appearance: Neat/well groomed Attitude: Cooperative Behavior: Overtly anxious Affect: Well Modulated/Appropriate Mood: Dysthymic, Anxious Thought Process/Associations: Logical/Sequential, Goal Directed Speech Production: Normal Speech Rate: Normal Speech Articulation: Normal Thought Content: Negativistic (mildly) Danger to Self/Suicidal Ideati: None Danger to Others: None Delusions: Somatic Hallucinations: Auditory (Endorses), Visual (Denies) Consciousness: Alert Orientation: Person, Place, Date, Situation Memory: Grossly Intact Estimate Intellectual Function: Average Basis for IQ estimate: Word use/vocabulary, Educational history, Employment history Attention/Concentration & Cogn: Impaired Insight: Limited (but improving) Judgement: Limited (but improving) Mental Health Plan The patient is a 26-year-old, single female with substance use and depression for the last 10 years. The patient was admitted with signs of psychosis with poor impulse control, responding to internal stimuli, auditory hallucinations, and paranoid delusions. She became agitated at the crisis center staff to the point where police were called. In the ER, she was detained as gravely disabled and a danger to self and others for suicidal ideation and ongoing psychotic symptoms. The patient had previously been using alcohol and methamphetamine as a coping mechanism but has been reportedly sober for the last 2 months. Once stabilized the patient will go back into treatment. The patient reports needing both Haldol and quetiapine. The patient reports dental pain and there is evidence of dental decay but no acute abscess formation. Discussed using ibuprofen and lidocaine gel. The patient reports that this has been somewhat helpful. She will need outpatient dental follow-up. The patient reports feeling that the increased sertraline has reduced her anxiety. The patient would like to stabilize further prior to discharge to crisis respite. [place] AXIS I: 1. Psychosis, unspecified. 2. Alcohol use disorder in partial remission 3. Methamphetamine use disorder in partial remission 4. Depressive disorder unspecified by history AXIS II: Deferred. AXIS III: None acute AXIS IV: Moderate. AXIS V: Current Global Assessment of Functioning equal to 40. Medications Hydroxyzine 50 mg every 4 hours when necessary anxiety or agitation Lorazepam 1-2 mg every 4 hours when necessary anxiety or agitation Nicotine 21 mg patch daily + commit lozenge Clonazepam 0.5 mg twice daily Haloperidol 5 mg at 9 and 4 PM Sertraline 100 mg daily Zolpidem 5-10 mg nightly as needed Treatments 1. The patient is admitted to the inpatient unit and will be provided a safe and secure environment. 2. The patient is denying current active suicidality and is not in need of a one-to-one at this time. 3. The patient is encouraged to participate with group and milieu activities. 4. The patient will be seen by the treatment team on a daily basis to assess symptoms, side effects and response to treatment. 5. Continue clonazepam 0.5 mg twice daily in preparation for discharge with plan for further reduction 6. Increase ibuprofen to 800 mg 3 times daily as needed 7. Lidocaine gel for dental pain. 8. CBC, CMP in am 9. Hospitalist recommends referral to outpatient/PT for hip pain 10. The patient will need outpatient follow-up dental for extraction of retained recent and cavity repair 11. Anticipated length of stay is 5-7 days. Alirio Munoz MD Jun 11, 2017 16:28
--- NOTE | 2017-06-11 23:37 | NUR ---
Nurses Note Evening Patient remains anxious requesting medications almost hourly. Patient states she wants to sleep and has difficulty being redirected. Patient has c/o tooth pain with minimal relief with topical Lidocaine jelly. Patient has ear plugs in both ears because' I don't want to hear anything out here." She appears preoccupied at times with a startle reaction when interrupted. Will continue to maintain q 15min. checks for safety,reality test as tolerated. Addendum: 06/11/17 at 2346 by BERTHA HOLLINGSWORTH RN Amended: Links added.
--- NOTE | 2017-06-12 05:22 | NUR ---
nursing, nights, 11-7 s/o- has appeared to sleep after 2214 during q 15 minute assessments. a- no apparent distress. p- monitor behavior/emotional state, quality, times and amount of sleep, use and effect of medication. ruth ann
[2017-06-12 09:08] LABS: BASOPHILS % (AUTO) 0.7 % (0-3); EOSINOPHILS % (AUTO) 5.3 % (0-5); MONOCYTES % (AUTO) 7.9 % (4-12); Mean Corpuscular Hemoglobin 30.3 pg (27.0-35.0); Mean Corpuscular Volume 90.1 fL (81-100); NEUTROPHILS % (AUTO) 48.3 % (40-74); Platelet Count 328 bil/L (150-400)
[2017-06-12 11:03] VITALS: BP 142/81; PULSE 98; RESP 18
[2017-06-12] MEDS: LORazepam 1 mg Tablet PO PRN ×2 (12:48→19:04)
--- NOTE | 2017-06-12 15:57 | PCM.PNPSY ---
Subjective Date of Service Jun 12, 2017 Subjective The patient reports that she was experiencing some auditory hallucinations after lunch as well as yesterday. She has requested additional haloperidol. We discussed that her function tests are elevated and she denied any recent sexual contact or shared equipment. She did however request to be checked for hepatitis. We discussed that this could be a medication side effect and we need to determine whether her liver function is increasing or decreasing and she agreed to lab work in the morning. Sleep: 7.75 hours Appetite: "Fine" Suicidal and homicidal ideation: Denies Auditory hallucinations: Last after lunch Visual hallucinations: Denies Other Psychotic Symptoms: Isolative Anxiety/Depression: "better than yesterday." Current Medications Current Medications Sertraline HCl 100 mg DAILY PO Last administered on 06/12/17t 08:39; Admin Dose 100 MG; Start 06/11/17 at 08:30 Mental Status Exam Vital Signs Vital Signs Date Time Temp Pulse Resp B/P Pulse Ox O2 Delivery O2 Flow Rate FiO2 06/12/17 11:03 36.4 98 18 142/81 Appearance: Neat/well groomed Attitude: Pleasant, Cooperative Behavior: No unusual behavior Affect: Well Modulated/Appropriate Mood: Dysthymic, Anxious Thought Process/Associations: Logical/Sequential, Goal Directed Speech Production: Normal Speech Rate: Normal Speech Articulation: Normal Thought Content: Negativistic (mildly) Danger to Self/Suicidal Ideati: None Danger to Others: None Delusions: Somatic Hallucinations: Auditory (Endorses), Visual (Denies) Consciousness: Alert Orientation: Person, Place, Date, Situation Memory: Grossly Intact Estimate Intellectual Function: Average Basis for IQ estimate: Word use/vocabulary, Educational history, Employment history Attention/Concentration & Cogn: Impaired Insight: Limited (but improving) Judgement: Limited (but improving) Result Diagram: 06/12/1789906/12/17 09 Mental Health Plan The patient is a 26-year-old, single female with substance use and depression for the last 10 years. The patient was admitted with signs of psychosis with poor impulse control, responding to internal stimuli, auditory hallucinations, and paranoid delusions. She became agitated at the crisis center staff to the point where police were called. In the ER, she was detained as gravely disabled and a danger to self and others for suicidal ideation and ongoing psychotic symptoms. The patient had previously been using alcohol and methamphetamine as a coping mechanism but has been reportedly sober for the last 2 months. Once stabilized the patient will go back into treatment. The patient reports needing both Haldol and quetiapine. The patient reports dental pain and there is evidence of dental decay but no acute abscess formation, patient reporting treatment effective with ibuprofen and lidocaine gel. She will need outpatient dental follow-up. The patient reports feeling that the increased sertraline has reduced her depression/ anxiety. The patient requests increased haloperidol be available. The patient' s LFTs are elevated and unclear if secondary to medication or infection. [place] AXIS I: 1. Psychosis, unspecified. 2. Alcohol use disorder in partial remission 3. Methamphetamine use disorder in partial remission 4. Depressive disorder unspecified by history AXIS II: Deferred. AXIS III: None acute AXIS IV: Moderate. AXIS V: Current Global Assessment of Functioning equal to 40. Medications Hydroxyzine 50 mg every 4 hours when necessary anxiety or agitation Lorazepam 1-2 mg every 4 hours when necessary anxiety or agitation Nicotine 21 mg patch daily + commit lozenge Clonazepam 0.5 mg twice daily Haloperidol 5 mg at 9 and 4 PM with 5mg twice a day as needed Sertraline 100 mg daily Zolpidem 5-10 mg nightly as needed Treatments 1. The patient is admitted to the inpatient unit and will be provided a safe and secure environment. 2. The patient is denying current active suicidality and is not in need of a one-to-one at this time. 3. The patient is encouraged to participate with group and milieu activities. 4. The patient will be seen by the treatment team on a daily basis to assess symptoms, side effects and response to treatment. 5. Continue clonazepam 0.5 mg twice daily in preparation for discharge with plan for further reduction 6. Increase ibuprofen to 800 mg 3 times daily as needed 7. Lidocaine gel for dental pain. 8. Hepatitis panel, CMP in am 9. Hospitalist recommends referral to outpatient/PT for hip pain 10. The patient will need outpatient follow-up dental for extraction of retained recent and cavity repair 11. Anticipated length of stay is 5-7 days. Alirio Munoz MD Jun 12, 2017 15:57
--- NOTE | 2017-06-12 17:03 | NUR ---
Nursing Notes [id number] S: "There is nothing to do and I am bored, so I might as well just sleep". O: Patient slept late and had a late breakfast this morning. At 09:07, patient requested a red and white capsule,-the Vistaril). Patient given medication and was asked about her anxiety level. Patient replied, Its so I can sleep! Patient told she could not sleep 28/04. Patient smiled and replied, I know. Patient has consistently refused lidocaine gel for tooth pain this shift. A: Med seeking, isolating, restricted, reporting voices, and anxious. P: Monitor for safety and response to treatment. Follow plan of care. Addendum: 06/12/17 at 1704 by SHARAN DIAS RN PRNs 0927 Tylenol for tooth pain 01/13. Minimally effective 12/13. 0947 Vistaril 50 mg for anxiety 12/13. Minimally effective. 1250 Vistaril 50 mg for anxiety 10. Effective, anxiety reduced to 02/12. 1248 Ativan 1 mg for anxiety /10. Effective, anxiety reduced to 02/12. 1340 Motrin for tooth pain 03/15. Effective, pain reduced to 01/13. 1606 Tylenol 650 mg po for tooth pain 12/13.
--- NOTE | 2017-06-12 18:38 | NUR ---
Music Supervisor/Counselor: S: "I want 2 extra doses of haldol available." O: Patient slept 7.75 hours last night per staff. Patient denies S/I and H/I. She also denies auditory and visual hallucinations. Depression and anxiety are rated as "not really." A: Patient is cooperative, anxious, suspicious, limited insight, limited judgment. P: Follow the care plan, coordinate with out-patient providers.
[2017-06-12] MEDS: Magnesium Hydroxide 10 mL Oral Concentration PO PRN (19:05)
[2017-06-12] MEDS: Zolpidem 5 mg Tablet for FEMALE or >65YO PO PRN (21:10)
--- NOTE | 2017-06-12 21:16 | NUR ---
Observations 0900 - 1730 Pt affect and mood was anxious, isolative, guarded and unsocial. Pt was in her room most of the day and out in milieu in the evening. Pt was pleasant, polite and cooperative when approached. Pt speech and eye contact was good. Pt was social with select peers but mostly kept to herself. Pt attended meals in D.[employer]. and ate 100% of her meals. Pt ate snacks. Pt declined coming to community meeting. Pt refused to set a daily goal. Pt took a shower and attended to ADL's. Pt is constantly asking for more meds, RN was notified each time. Pt was observed every 15 minutes through the shift as ordered.
--- NOTE | 2017-06-13 03:38 | NUR ---
Nursing Noc "If I keep the Haldol under my tongue will it work faster?" Patient reports zero voices if she gets her scheduled and PRN Haldol, Discussed lab values and risks of continued Tylenol use. Pt requesting multiple PRNs when available except Lidocaine Gel, reporting it tastes terrible. Pt out to common area for snacks then isolative to room when not hanging out at the medication room. Continuing to monitor mood, behavior, and emotional state. Q15 minute safety checks. BHCP
--- NOTE | 2017-06-13 13:40 | NUR ---
NURS NOTE DAY Mood: "I'm really anxious. Can I have a red and white pill." Endorses anxiety 5/10. Denies depression. Affect: Restricted. Thought Process/Content: "Can I have a Haldol. Can I just take both of my haldols now. I want to sleep . . . I've been wearing ear plugs for the past two years." Pt endorses AH. Denies VH. Denies SI, HI. Behavior: Pt isolate in room much of shift. Up for meetings. Makes frequent requests for medication from staff. PRNs/NURS: Administered 10 mg halperidol at 1237 (combined 1600 and PRN dose) per Dr. Munoz's suggestion. Pt has one remaining dose of PRN halperidol.
[2017-06-13] MEDS: LORazepam 1 mg Tablet PO PRN (16:48)
--- NOTE | 2017-06-13 18:18 | NUR ---
S Day Shift Pt maintained behavioral control throughout the shift. Pt affect appears mostly flat, irritable. Pt spends most of the shift resting in her room and pacing the unit. Pt is appropriate with staff and peers when engaged, but is not overly social and is occasionally irritable during interactions with staff. Pt expresses frustration when unable to receive medication in what she deems a timely manner. Pt did not attend community meeting and has not engaged in any unit activities at this time. Pt attended all meals and ate approx 80% of all meals.
--- NOTE | 2017-06-13 19:15 | NUR ---
Neon Tube Pumper/Counselor: S/O: Patient slept 6.75 hours last night per staff. Patient denies S/I and H/I. She also denies auditory and visual hallucinations. Depression and anxiety were not rated. A: Patient is cooperative, anxious, suspicious, limited insight, limited judgment. P: Follow the care plan, coordinate with out-patient providers.
[2017-06-13] MEDS: Zolpidem 5 mg Tablet for FEMALE or >65YO PO PRN (20:36)
--- NOTE | 2017-06-13 23:01 | PCM.PNPSY ---
Subjective Date of Service Jun 13, 2017 Subjective Patient reporting increased auditory hallucinations. Patient noted to be internally distracted and laughing to self. Patient reported that dental pain improved with lidocaine but noted it left a bad taste in her mouth. Patient has been requesting additional haloperidol fairly consistently for auditory hallucinations. She denies side effects. Sleep: 6.75+ hours Appetite: good Suicidal and homicidal ideation: denies Auditory hallucinations: endorses Visual hallucinations: denies Other Psychotic Symptoms: internal preoccupation Anxiety: denies Depression: denies Current Medications Current Medications Haloperidol 5 mg BID PRN PO Last administered on 06/13/17t 12:37; Admin Dose 5 MG; Start 06/12/17 at 15:40 Mental Status Exam Appearance: Neat/well groomed Attitude: Pleasant, Cooperative Behavior: No unusual behavior Affect: Well Modulated/Appropriate Mood: Dysthymic, Anxious Thought Process/Associations: Goal Directed, Blocking Speech Production: Paucity Speech Rate: Lags/Latency Speech Articulation: Normal Thought Content: Perseveration Danger to Self/Suicidal Ideati: None Danger to Others: None Delusions: Somatic Hallucinations: Auditory (Endorses), Visual (Denies) Consciousness: Alert Orientation: Person, Place, Date, Situation Memory: Grossly Intact Estimate Intellectual Function: Average Basis for IQ estimate: Word use/vocabulary, Educational history, Employment history Attention/Concentration & Cogn: Impaired Insight: Limited (but improving) Judgement: Limited (but improving) Result Diagram: 06/12/17 0900 06/13/17 09 Mental Health Plan The patient is a 26-year-old, single female with substance use and depression for the last 10 years. The patient was admitted with signs of psychosis with poor impulse control, responding to internal stimuli, auditory hallucinations, and paranoid delusions. She became agitated at the crisis center staff to the point where police were called. In the ER, she was detained as gravely disabled and a danger to self and others for suicidal ideation and ongoing psychotic symptoms. The patient had previously been using alcohol and methamphetamine as a coping mechanism but has been reportedly sober for the last 2 months. Once stabilized the patient will go back into treatment. The patient reports needing both Haldol and quetiapine. The patient reports dental pain and there is evidence of dental decay but no acute abscess formation, patient reporting treatment effective with ibuprofen and lidocaine gel. She will need outpatient dental follow-up. The patient reports feeling that the increased sertraline has reduced her depression/ anxiety. The patient requests increased haloperidol be available as she continues to experience auditory hallucinations. The patient's LFTs are lower than yesterday and unclear if secondary to medication or infection. Hepatitis panel pending. [place] AXIS I: 1. Psychosis, unspecified. 2. Alcohol use disorder in partial remission 3. Methamphetamine use disorder in partial remission 4. Depressive disorder unspecified by history AXIS II: Deferred. AXIS III: None acute AXIS IV: Moderate. AXIS V: Current Global Assessment of Functioning equal to 40. Medications Hydroxyzine 50 mg every 4 hours when necessary anxiety or agitation Lorazepam 1-2 mg every 4 hours when necessary anxiety or agitation Nicotine 21 mg patch daily + commit lozenge Clonazepam 0.5 mg twice daily Haloperidol 5 mg at 9 and 4 PM and 9pm with 5mg twice a day as needed Sertraline 100 mg daily Zolpidem 5-10 mg nightly as needed Treatments 1. The patient is admitted to the inpatient unit and will be provided a safe and secure environment. 2. The patient is denying current active suicidality and is not in need of a one-to-one at this time. 3. The patient is encouraged to participate with group and milieu activities. 4. The patient will be seen by the treatment team on a daily basis to assess symptoms, side effects and response to treatment. 5. Continue clonazepam 0.5 mg twice daily in preparation for discharge with plan for further reduction 6. Increase haloperidol to 5mg tid. Reduce quetiapine to 100mg daily and 300mg nightly. 7. Lidocaine gel for dental pain. 8. Hepatitis panel pending, would recheck CMP in several days to ensure LFTs returning to normal 9. Hospitalist recommends referral to outpatient/PT for hip pain 10. The patient will need outpatient follow-up dental for extraction of retained recent and cavity repair 11. Anticipated length of stay is 5-7 days. Alirio Munoz MD Jun 13, 2017 16:58
[2017-06-14 03:08] LABS: Hepatitis A Antibody IgM Negative (Negative); Hepatitis B Core Antibody IgM Negative (Negative)
--- NOTE | 2017-06-14 04:35 | NUR ---
Nurisng Noc Pt appears unchanged from previous night, Denies audio or visual hallucinations. Using PRNs when available, Noted to be first asleep at 2100 and has remained asleep throughout the night. Continuing to monitor mood, behavior and emotional state. Q15 minute safety checks.
--- NOTE | 2017-06-14 14:10 | PCM.PNPSY ---
Subjective Date of Service Jun 14, 2017 Subjective I spent 30 minutes both reviewing treatment plan with our clinical team, interviewing the patient and providing supportive/educational psychotherapy. I spent more than 50% of the time counseling the patient. I reviewed the treatment plan with the patient and discussed options available including the potential risks, benefits and side effects. Lin repeats feeling a slight improvement in her thought organization and mood stability but is continuing to request more Haldol for auditory hallucinations and anxiety as a result of these.(. Staff reports that she has been more active and is now attempting to participate in one-to-one unit and group activities. She slept well but complains of continued high anxiety. She denies that the ears are symptoms of akathisia but I am concerned. She reports feeling a slight decrease in symptoms of psychosis (paranoia auditory hallucinations) since starting 3 times a day Haldol. She denies medication side effects. Current Medications Current Medications Haloperidol 5 mg 09,16,21 PO Last administered on 06/14/17 09:17; Admin Dose 5 MG; Start 06/13/17 at 21:00 Haloperidol 5 mg BID PRN PO Last administered on 06/13/17 12:37; Admin Dose 5 MG; Start 06/12/17 at 15:40 Quetiapine Fumarate 300 mg HS PO Last administered on 06/13/17 20:34; Admin Dose 300 MG; Start 06/13/17 at 21:00 Mental Status Exam Appearance: Neat/well groomed Attitude: Pleasant, Cooperative Behavior: No unusual behavior Affect: Well Modulated/Appropriate Mood: Dysthymic, Anxious Thought Process/Associations: Goal Directed, Blocking Speech Production: Paucity Speech Rate: Lags/Latency Speech Articulation: Normal Thought Content: Perseveration Danger to Self/Suicidal Ideati: None Danger to Others: None Delusions: Somatic Hallucinations: Auditory (Endorses), Visual (Denies) Consciousness: Alert Orientation: Person, Place, Date, Situation Memory: Grossly Intact Estimate Intellectual Function: Average Basis for IQ estimate: Word use/vocabulary, Educational history, Employment history Attention/Concentration & Cogn: Impaired Insight: Limited (but improving) Judgement: Limited (but improving) Result Diagram: 06/12/1789906/13/17899 Mental Health Plan This patient is a 26-year-old, single, white female, currently homeless, who has been struggling with symptoms of polysubstance abuse and depression for 10 years. She now has symptoms of psychosis, appearing to have very poor impulse control, responding to internal stimuli, complaining of auditory hallucinations and paranoid delusions. She became agitated at the crisis center staff at to the point where police were called. In the ER, she asked for help but was detained as gravely disabled and a danger to self and others for suicidal ideation and ongoing psychotic symptoms. She reported being sober from methamphetamine and alcohol for two months prior to admission. However her stressors have not decreased and she has not obtained better coping skills. She was using the alcohol and methamphetamine to cope; now she is not using these substances. She has very little way of handling her thoughts, anxieties or moods. The crisis center is invested in the patient as well as her mother. They are hoping that she can become stabilized on her meds and then get back to treatment. Today she reports feeling a slight improvement in her thought organization and mood stability. She believes that the addition of Haldol 3 times a day is helping.. [place] AXIS I: 1. Psychosis, unspecified. 2. Alcohol use disorder in partial remission 3. Methamphetamine use disorder in partial remission 4. Depressive disorder unspecified by history AXIS II: Deferred. AXIS III: None acute AXIS IV: Moderate. AXIS V: Current Global Assessment of Functioning equal to 35 Treatments Patient is being provided with a high degree of safety through our unit structure and active adult engagement provided by our mental health professionals, mental health technicians, psychiatric nurses and myself. We are focusing on developing improved coping skills and identifying stressors that may have led to current episode. We will attempt to: * Integrate into therapeutic groups, milieu and individual therapy. * Maintain in a closely monitored and structured unit * Provide low-stimulation environment * Obtain collateral data to assist in treatment planning * Assess degree of lability of affect and impulse control * Complete safety plan * Decrease frequency of relapse and need for re-hospitalization * Denies thoughts of harm to self and/or others * Establish a consistent sleep pattern * Medication effective in stabilization of mood and/or thought process * Reduce the risk of imminent harm to self and/or others by providing a safe environment * Tolerates medication without side effects * Patient will be on the following psychiatric medications: Clonazepam 0.5 mg twice daily Haloperidol 5 mg at 9 and 4 PM and 9pm with 5mg twice a day as needed Sertraline 100 mg daily Zolpidem 5-10 mg nightly as needed quetiapine to 100mg daily and 300mg nightly. Labs:Hepatitis panel pending, would recheck CMP in several days to ensure LFTs returning to normal Education: Educate patient about recreational drug use as an etiology Educate about metabolic etiologies related to obesity Patient's legal status 14 day involuntary treatment hold. Anticipated number of hospital days to achieve above goals: 5 Disposition: Crisis fpc or her mother's home Steven Brown MD Jun 14, 2017 14:10
--- NOTE | 2017-06-14 15:20 | NUR ---
[id number]. nurs. S: "I have been wearing earplugs for a year and half, everything is too loud...I need something for anxiety, no I can't do that my body needs to lie down, can I get something to make me sleep. I just need to sleep today tomorrow I will try that... no I am not restless,, I'm always do this (jiggling legs).... O:Pt stating that she cannot attempt time out on unit trying activities to help mange her anxiety. Pt reporting that she wants larger doses of seroquel and haldol than has prescribed currently, pt shortly after reporting anxiety appeared to be having episode of irrepressible smiling laughing and unable to identify trigger. Pt mtg with to discuss med regime and no changes made at this time. Pt received tylenol 650mg for PEPE at 1346 and 50mg of vistaril and haldol 5mg at 1422 for anxiety and AHs. Pt stating that AHs are not negative currently. Pt continuing to be isolative and avoidant seeking meds rather than trying other coping for anxiety. P:CNCP Addendum: 06/14/17 at 1841 by MARVIN WALLS RN Pt coming to ask for medication for anxiety at 1800 after eating dinner and then kicked over trash can and went to , pt stating she didn't know why she was worried about her brother does not want to elaborate re. fears or anxiety pt given 2mg of ativan with 5mg of haldol at 1804. Pt had 1600 haldol withheld after receiving prn haldol 5mg at 1422 . Pt stating that seroquel 100mg received at 1600 "helped for a minute. pt apologizing for implusive action and returned to staying in her bedrm.
[2017-06-14 16:22] VITALS: BP 120/76; PULSE 90; RESP 18
[2017-06-14] MEDS: LORazepam 1 mg Tablet PO PRN (18:04)
--- NOTE | 2017-06-14 18:05 | NUR ---
Sr Account Executive/Counselor S:"I'm really tired. I need sleep with I get anxious." O: Patient denies any SI or HI, no AVH at this time and no depression. Anxiety rated at a 5. A: Patient has kept to her room for most of the day. Patient did not participate in any activities. Agitated at being questioned regarding her wellbeing. P: Follow care plan and coordinate with outpatient providers.
--- NOTE | 2017-06-14 18:15 | NUR ---
[facility] Day Shift Pt maintained behavioral control throughout the shift (save for one outburst in the evening in which she kicked a trash can). Pt affect appears mostly flat, irritable. Pt spends most of the shift resting in her room and pacing the unit. Pt is appropriate with staff and peers when engaged, but is not overly social and is occasionally irritable during interactions with staff. Pt expresses frustration when unable to receive medication in what she deems a timely manner. Pt did not attend community meeting and has not engaged in any unit activities at this time. Pt attended all meals and ate approx 80% of all meals.
[2017-06-14] MEDS: Zolpidem 5 mg Tablet for FEMALE or >65YO PO PRN (20:24)
--- NOTE | 2017-06-15 05:15 | NUR ---
Nursing Noc Pt presented more argumentative and irritable this shift. Directable with positive reinforcement. Noted to remain asleep throughout the night. Continuing to monitor mood behavior and emotional state. Q15 minute safety checks throughout the night as directed. CP
[2017-06-15] MEDS: LORazepam 1 mg Tablet PO PRN ×2 (12:18→20:34)
--- NOTE | 2017-06-15 12:41 | NUR ---
[id number]. nurs. S:"I need vistaril and ativan and haldol for my anxiety.. and tylenol for PEPE"....I have seen the Dr, he said I need to take them (meds ) together every 4 hours, no changes..and seroquel" O: Pt unable to identify triggers for anxiety, pt stating PEPE 5/10, indicated pain in forehead . Pt came out for breakfast at 10ish then returned to did not come out again till 1145, ate breakfast at that time, and asked for meds as stated above. Pt isolating in bedrm has a smile on her face intermittently that she appears to be suppressing pt unable/unwilling to elaborate on triggers for, or nature of thoughts occurring with anxiety. Pt not interacting or open to participate in grps or activites on unit, appears alert, continues to wear ear plugs and avoid engagement P:CNCP
--- NOTE | 2017-06-15 13:52 | PCM.PNPSY ---
Subjective Date of Service Jun 15, 2017 Subjective I spent 30 minutes both reviewing treatment plan with our clinical team, interviewing the patient and providing supportive/educational psychotherapy. I spent more than 50% of the time counseling the patient. I reviewed the treatment plan with the patient and discussed options available including the potential risks, benefits and side effects. Lin repeats feeling a slight improvement in her thought organization and mood stability. Staff reports that she has been more active and is now attempting to participate in one-to-one unit and group activities. She slept 7 hours but continues to complain of high anxiety. She reports feeling a slight decrease in symptoms of psychosis (paranoia auditory hallucinations) since starting 3 times a day Haldol. She denies medication side effects. Current Medications Current Medications Haloperidol 5 mg 09,16,21 PO Last administered on 06/15/17 09:04; Admin Dose 5 MG; Start 06/13/17 at 21:00 Quetiapine Fumarate 300 mg HS PO Last administered on 06/14/17 20:24; Admin Dose 300 MG; Start 06/13/17 at 21:00 Mental Status Exam Appearance: Neat/well groomed Attitude: Pleasant, Cooperative Behavior: No unusual behavior Affect: Well Modulated/Appropriate Mood: Dysthymic, Anxious Thought Process/Associations: Goal Directed Speech Production: Paucity Speech Rate: Lags/Latency Speech Articulation: Normal Thought Content: Perseveration Danger to Self/Suicidal Ideati: None Danger to Others: None Delusions: Somatic Hallucinations: Auditory (Endorses), Visual (Denies) Consciousness: Alert Orientation: Person, Place, Date, Situation Memory: Grossly Intact Estimate Intellectual Function: Average Basis for IQ estimate: Word use/vocabulary, Educational history, Employment history Attention/Concentration & Cogn: Impaired Insight: Limited (but improving) Judgement: Limited (but improving) Result Diagram: 06/12/1789906/13/17899 Mental Health Plan This patient is a 26-year-old, single, white female, currently homeless, who has been struggling with symptoms of polysubstance abuse and depression for 10 years. She now has symptoms of psychosis, appearing to have very poor impulse control, responding to internal stimuli, complaining of auditory hallucinations and paranoid delusions. She became agitated at the crisis center staff at to the point where police were called. In the ER, she asked for help but was detained as gravely disabled and a danger to self and others for suicidal ideation and ongoing psychotic symptoms. She reported being sober from methamphetamine and alcohol for two months prior to admission. However her stressors have not decreased and she has not obtained better coping skills. She was using the alcohol and methamphetamine to cope; now she is not using these substances. She has very little way of handling her thoughts, anxieties or moods. The crisis center is invested in the patient as well as her mother. They are hoping that she can become stabilized on her meds and then get back to treatment. Today she repeats feeling a slight improvement in her thought organization and mood stability. [place] AXIS I: 1. Psychosis, unspecified. 2. Alcohol use disorder in partial remission 3. Methamphetamine use disorder in partial remission 4. Depressive disorder unspecified by history AXIS II: Deferred. AXIS III: None acute AXIS IV: Moderate. AXIS V: Current Global Assessment of Functioning equal to 35 Treatments Patient is being provided with a high degree of safety through our unit structure and active adult engagement provided by our mental health professionals, mental health technicians, psychiatric nurses and myself. We are focusing on developing improved coping skills and identifying stressors that may have led to current episode. We will attempt to: * Integrate into therapeutic groups, milieu and individual therapy. * Maintain in a closely monitored and structured unit * Provide low-stimulation environment * Obtain collateral data to assist in treatment planning * Assess degree of lability of affect and impulse control * Complete safety plan * Decrease frequency of relapse and need for re-hospitalization * Denies thoughts of harm to self and/or others * Establish a consistent sleep pattern * Medication effective in stabilization of mood and/or thought process * Reduce the risk of imminent harm to self and/or others by providing a safe environment * Tolerates medication without side effects * Patient will be on the following psychiatric medications: Clonazepam 0.5 mg twice daily Haloperidol 5 mg at 9 and 4 PM and 9pm with 5mg twice a day as needed Sertraline 100 mg daily Zolpidem 5-10 mg nightly as needed quetiapine to 100mg daily and 300mg nightly. Labs: Liver function tests from 06/13/2017 trending towards normal Education: Educate patient about recreational drug use as an etiology Educate about metabolic etiologies related to obesity Patient's legal status 14 day involuntary treatment hold. Anticipated number of hospital days to achieve above goals: 5 Disposition: Crisis nursing home or her mother's home Brown,Harris MD Jun 15, 2017 13:51
--- NOTE | 2017-06-15 17:21 | NUR ---
Sisal Picker/Counselor S:"I'm ok, really tired." O: Patient denies any SI or HI, no AVH, no anxiety or depression but stated her heart was beating rapidly. A: Patient is cooperative, anxious, suspicious, limited insight, limited judgment. Did not come out for breakfast but wanted it reheated mid-morning. Patient slept for 7.5 hrs. P: Follow the care plan, coordinate with out-patient providers.
--- NOTE | 2017-06-15 17:50 | NUR ---
[facility] Pt maintained behavioral control throughout the shift. Pt affect appears mostly flat, irritable. Pt spends most of the shift resting in her room and occasionally pacing the unit. Pt is appropriate with staff and peers when engaged, but is not overly social. Pt did not attend community meeting and has not engaged in any unit activities at this time. Pt attended all meals and ate approx 100% of all meals.
[2017-06-15] MEDS: Zolpidem 5 mg Tablet for FEMALE or >65YO PO PRN (20:34)
--- NOTE | 2017-06-16 05:06 | NUR ---
Nursing, NOC shift Patient in room resting at beginning of shift. No c/o at this time. PRN Ativan and Ambien given at HS for c/o sleeplessness. Continue Q15 min safety and room checks thru the NOC.
[2017-06-16] MEDS: LORazepam 1 mg Tablet PO PRN (11:51)
[2017-06-16] MEDS: Magnesium Hydroxide 10 mL Oral Concentration PO PRN (11:52)
--- NOTE | 2017-06-16 11:52 | NUR ---
Anxiety Pt c/o anxiety rated 9/10. She requested and received Ativan 1mg po prn and Vistaril 50mg po prn for felt anxiety. She also received MOM 10ml po prn for c/o constipation.
--- NOTE | 2017-06-16 15:14 | NUR ---
Nursing Dayshift: S: "I'm not hearing any voices, at least not yet." O: Patient denying harmful thoughts and hallucinations. States anxiety and depression are both "high". Received Klonopin 0.5 mg and Vistaril 50 mg at 1427 for c/o anxiety. Would not rate. Had been pacing the diaz. Not pacing at the present time. Speech hard to understand at times. A: Anxious. Calmer with requested prn's. P: CPOC. Monitor mood and behavior. Addendum: 06/16/17 at 1535 by BHARAT LOERA RN Disregard above note. Wrong patient.
--- NOTE | 2017-06-16 15:35 | NUR ---
Wrong Patient: Disregard previous note.
--- NOTE | 2017-06-16 15:36 | NUR ---
Nursing Dayshift: S: "I'm not hearing any voices, at least not yet." O: Patient denying harmful thoughts and hallucinations. States anxiety and depression are both "high". Received prn's Haldol 5 mg and Vistaril 50 mg both PO at 1431 then back to bed. Out for meals and requests. Good appetite. A: Anxious. Calmer with requested prn's. P: CPOC. Monitor mood and behavior. Monitor for effective results from prn's.
--- NOTE | 2017-06-16 17:40 | PROG NOTE ---
[address] [address] PROGRESS NOTE PATIENT: SANTA BARRETT : 1990 MR#: [id number] ADMIT: 05/31/2017 JOB ID: [id number] DATE: 06/16/2017 CHIEF COMPLAINT: "Do you know if they found me a place to live yet?" This is per patient report. HISTORY OF THE PRESENT ILLNESS: As stated above, the patient did identify that she is aware that her court order will run out on the and that she is hoping that she can return back to either crisis respite or some other half-way care. She reports that she has no desire to return back to [facility] despite her family involvement. Per staff report, the patient has been cooperating with medication management and is agreeable to continue with aftercare followup. MENTAL STATUS EXAM: She was cooperative, polite. She was casually dressed, lying in bed. She made intermittent eye contact. Her speech was of normal tone, frequency, and volume. Her mood was neutral. Affect was blunted. Her thought process shows no evidence of racing thoughts, flight of ideas, loose or disconnected thinking. Thought content: She denied any evidence of current suicidal, homicidal ideation. She denied any active hallucinations or delusions but does appear to be responding to internal stimulus throughout. She was alert, oriented to time and place. Her attention and concentration intact. Insight and judgment are poor. PHYSICAL EXAM: Vital signs are current. Temperature is 36.0, pulse 90, respirations 18, BP 120/76. MEDICATION REVIEW: 1. Zoloft 100 mg q.a.m. 2. Seroquel 100 mg at 4, 300 mg at h.s. 3. Haldol 5 mg at 9, 4 and 2100. 4. Klonopin 0.5 mg b.i.d. 5. Ativan 1 mg q.4 h. p.r.n. 6. Vistaril 50 mg q.4 h. p.r.n. ASSESSMENT: [place] I1. Psychotic disorder, not otherwise specified. 2. Methamphetamine use in partial remission. 3. Depressive disorder, not otherwise specified, by history. 4. Alcohol use disorder in remission. [place] IIDeferred. [place] IIINone. [place] IVModerate. [place] VGlobal assessment of functioning 35. PLANS: 1. Recommendation is for continuation of all medications with discontinuation of Ativan due to a combined response with Klonopin. 2. Recommendation is for probable discharge on the to designated half-way care or crisis center with aftercare including outpatient case management and medication management.
--- NOTE | 2017-06-16 17:57 | NUR ---
Network Admin/Counselor S:"I'm laying down because I'm anxious." O: Patient denies any SI or HI, no AVH, no anxiety or depression. A: Patient is cooperative, anxious, suspicious, limited insight, limited judgment and has isolated to her room for most of the day. P: Follow the care plan, coordinate with out-patient providers.
[2017-06-16 19:06] VITALS: BP 124/73; PULSE 105; RESP 14
[2017-06-16] MEDS: Zolpidem 5 mg Tablet for FEMALE or >65YO PO PRN (20:32)
--- NOTE | 2017-06-17 02:28 | NUR ---
Observations 1900 to 0700 Pt attended and participated in wrap up group. Pt ate a snack. Pt reported mood of 7. Pt reports having high anxiety and wanting to discharge. Pt remains in room lying in bed most of shift. Pt is not observed interacting with peers. Pt appeared asleep from 2099- 129 and has remained asleep since 144. Pt respirations were observed when asleep. Staff completed 15 min close observations as ordered.
--- NOTE | 2017-06-17 05:39 | NUR ---
Nursing Noc Patient has appeared anxious while waiting for HS medications. Requests PRN Ativan just one hour after administration. Requested available PRN Seroquel at the same time. HS Seroquel was being given Pt isolative in common area but pleasant and appropriate with approached. Continuing to monitor mood, behavior and emotional state. CP Q15 safety checks performed throughout the shift as directed.
--- NOTE | 2017-06-17 09:18 | NUR ---
Medication Pt requested and received Vistaril 50mg po prn @ 914 for felt anxiety. Will assess medication efficacy through the day. Addendum: 06/17/17 at 1213 by MARKIE SPENCER RN Pt c/o voices and anxiety. She requested medication. She received Vistaril 50mg po prn at that time. Will monitor effect. Pt presents as chronically anxious. Addendum: 06/17/17 at 1226 by MARKIE SPENCER RN Tylenol 650mg po prn for c/o PEPE pain.
--- NOTE | 2017-06-17 14:37 | PROG NOTE ---
[address] [address] PROGRESS NOTE PATIENT: SANTA BARRETT : 1990 MR#: [id number] ADMIT: 05/31/2017 JOB ID: [id number] DATE: 06/17/2017 CHIEF CONCERN: "If I don't get to go and live there, I don't know if I want to be there for a long time." This per patient report. HISTORY OF PRESENT ILLNESS: As stated above the patient did confirm that she had called the [facility] in [place] and was informed that she would have to understand that it was only a temporary option. She indicated that she is very concerned about her long-term housing options and she was encouraged that she could follow up with insurance case manager in the [facility]. She indicated that she will be discharged tomorrow and is grateful. She indicated that she has been cooperating with staff but primarily isolating to her room per staff notation. She remains cooperative with her medication interventions. I have expressed concern about her long-term history of substance use including methamphetamine, alcohol, and marijuana, and I have elected to discontinue doses of Klonopin with the identification that she will be discharged on primary medications including Haldol, Seroquel, and Zoloft. She was informed of this and made no response. OBJECTIVE: On mental status exam, she was intermittently irritated with the current discharge process. She indicated that she does not want to return back to [facility] to live with her family and indicated that she wants nothing to do with them. She reports that she is willing to look at a placement at the [facility] and was informed that it was only a temporary option. She was encouraged to look at continuation of case management services and medication management through a local community mental health center. She denies any evidence of current suicidal, homicidal ideation. No evidence of paranoia. No evidence of active hallucinations, delusions. She was alert, oriented to time and place. Attention and concentration poor. Insight and judgment are poor. PHYSICAL EXAMINATION: Vital signs are current: Temperature is 35.9, pulse 105, respirations 14, BP 124/73. MEDICATION REVIEW: Includes Haldol 5 mg t.i.d., Seroquel 100 mg at 4 and 300 mg q.h.s., Zoloft 100 mg q.a.m., Klonopin 0.5 mg b.i.d., Vistaril 50 mg q.4 h. p.r.n. ASSESSMENT: Ezel I: 1. Psychotic disorder, not otherwise specified. 2. 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 3. Alcohol use disorder, in remission. 4. Major depressive disorder, recurrent type, nonpsychotic. Ezel II: Cluster B personality traits. Ezel III: None. Ezel IV: Stressors are consistent for chronic mental health issues, substance use issues. Ezel V: Global Assessment of Functioning of current 40. PLAN: 1. Recommendations to discharge tomorrow to [facility] in [place]. 2. Patient was encouraged to look at a community-based mental health center including [facility] or [facility] for continuation of medication management and case management options.
--- NOTE | 2017-06-17 15:13 | NUR ---
Medication administration: Pt requested ibuprofen for tooth pain, -07/15 that hurts the "whole side" of her face/head, right side. Pt recieved 800mg PRN ibuprofen at 1512. Staff also reassessed the earlier PRN tylenol given to which Pt stated "It didn't help at all." Pt will be monitored and reassessed for medication efficacy.
--- NOTE | 2017-06-17 17:02 | NUR ---
Nursing Dayshift: S: "Not real high." O: Patient describing anxiety at the present time. States it was higher earlier in the shift due to pain. Has had numerous prn's which are noted in previous entries. Recently received Tylenol 650 and Vistaril 50 mg for continued c/o tooth pain. Declines lidocaine gel due to it not working well enough per patient. Good appetite at meals. In her room much of the shift. A: Tooth pain. Isolative. P: CPOC. Monitor mood and behavior.
--- NOTE | 2017-06-17 17:36 | NUR ---
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 No auditory or visual hallucinations. Depression and anxiety were not rated. A: Patient is cooperative, anxious, suspicious, limited insight, limited judgment. Patient called crisis respite and was turned down, though patient stated she was not given a reason why. Patient requested phone numbers for surrounding shelters, and was provided with #'s to [facility], [facility] and [facility]. Patient was informed of discharge tomorrow, and asked to decide which penitentiary she would like to go to. Patient did not provide any follow up information regarding to discharge, and has since withdrawn to her room and reported a toothache. P: Follow the care plan, coordinate with out-patient providers.
[2017-06-17] MEDS: Zolpidem 5 mg Tablet for FEMALE or >65YO PO PRN (20:47)
--- NOTE | 2017-06-18 00:37 | NUR ---
Observations 1900 to 0700 Pt ate a snack. Pt showered. Pt has a guarded, paranoid affect. Pt spent free time resting in bed and not interacting with peers. Pt maintained behavioral control. Pt appeared asleep at 2130 and has remained asleep. Pt respirations were observed when asleep. Staff completed 15 min close observations as ordered.
--- NOTE | 2017-06-18 04:44 | NUR ---
Nursing Noc Patient presents without obvious change in mood or effect, patient reports anxiety r/t expected discharge in am and is requesting assistance with finding temporary housing prior to discharge. Continuing to monitor mood, behavior and emotional state. Q15 minute safety checks as directed. Pt noted to be first asleep at 2130 and has remained asleep throughout the night. BHCP
--- NOTE | 2017-06-18 09:52 | PCM.DIMED ---
Discharge Instructions Date of Service Jun 18, 2017 Dates of Hospitalization May 31, 2017 at 03:46 Discharge Diagnosis Discharge Diagnosis Psychosis NOS Substance Induced Psychosis Amphetamine Use DO Depression NOS Diet Discharge Diet: No restrictions Activity Discharge Activity: No restrictions Winston Champagne DO Jun 18, 2017 09:52
[2017-06-18] MEDS ORDERED: QUET300T44 PO (09:57)
[2017-06-18] MEDS ORDERED: HAL5 PO (09:57)
[2017-06-18] MEDS ORDERED: QUET100T69 PO (09:57)
[2017-06-18] MEDS ORDERED: SERT50TA9 PO (09:57)
[2017-06-18 13:36] VITALS: BP 152/92; PULSE 94; RESP 18
--- NOTE | 2017-06-18 13:56 | DIS ---
[address] [address] DISCHARGE SUMMARY PATIENT: SANTA BARRETT : 1990 MR#: [id number] ADMIT: 05/31/2017 JOB ID: [id number] DIS: 06/18/2017 ADMITTING DIAGNOSES: AXIS I 1. Psychosis, not otherwise specified. 2. Alcohol abuse. 3. Methamphetamine abuse. AXIS II Deferred. AXIS III History of urinary tract infection. AXIS IV Moderate. AXIS V Global assessment of functioning of current 35. DISCHARGE DIAGNOSES: AXIS I 1. Substance-induced psychoses. 2. Amphetamine use disorder, intermittent, mild to moderate. 3. Alcohol use disorder in a controlled environment. 4. Depressive disorder, not otherwise specified. AXIS II Cluster B personality features. AXIS III None. AXIS IV Stressors are noted for chronic substance use, significant interpersonal conflicts and difficulties with characterological features. AXIS V Global assessment of functioning of current 40. REASON FOR ADMISSION: The patient was a 26-year-old female who reportedly was admitted under detainment with transfer from [facility]. The patient reportedly was at the [facility] prior and there was noted significant concern of active hallucinations with responses to internal stimulus. During the course of the hospitalization, the patient readily identified previous usage of amphetamines. She reportedly did undergo a physical evaluation through [facility] emergency department and it was noted that the patient did test positive for bacteria, a UA. She was started on doses of antibiotics including Macrobid and finished the course during the course of hospitalization. Throughout hospitalization, the patient did agreed to continuation of previous doses of Seroquel dispensed at 100 mg at 4 p.m. and 300 mg q.h.s. Additions of Haldol 5 mg t.i.d. She was also given low-dose therapies of Klonopin at 0.5 mg b.i.d. for difficulties with noted history of anxiety. Throughout hospital course, the patient was encouraged to look at alternative disposition, planning including possible access of [facility] chemical dependency treatment programs and outpatient mental health services. The patient identified that she was unwilling to return to her home community in [facility] indicating that she has no one there, that her family does not want her there any longer and this was a persistent theme over the last 72 hours prior to discharge. She agreed to followup with initiation of services in [place] with residence provided [place] the [facility]. On the day of discharge, the patient did agree with the heel caser to initiate services with [facility] for access of care including case management, possible resources of chemical dependency treatment in the future and ongoing medication management. CONDITION AT THE TIME OF DISCHARGE: MENTAL STATUS EXAMINATION: She was fairly cooperative but continues to show significant evidence of sabotage behaviors. She had been given notice yesterday of a plan and intent to discharge and did not follow through with the phone calls. With general assistance of the heel caser, this was completed this morning. Her mood was mildly dysphoric. Her affect was irritable. Her thought process showed no evidence of racing thoughts, flight of ideas, loose or disconnected thinking. Her thought content, she denied any evidence of current suicidal, homicidal ideation. There was no evidence of paranoia. She indicated that she had not been hearing voices or seeing things for quite some time. Her insight and judgment were deemed poor. PLANS: 1. Recommendations for transition to [place] with residence at the [facility]. 2. Follow up appointment with [facility], [facility], tomorrow morning for intake for both case management, medication management and possible access of chemical dependency treatment. 3. Continuation of Haldol 5 mg t.i.d., one month supply, no refills. Reason for usage: History of psychoses. 4. Continuation of Seroquel 100 mg at 4 o'clock, 300 mg q.h.s., one month supply, no refills. Reason for usage: Antipsychotic. 5. Continuation of Vistaril 50 mg t.i.d. p.r.n., one month supply, no refills. Reason for usage: History of anxiety. 6. Recommendations for the patient to maintain a clean and sober lifestyle. However, the patient has refused direct referrals to a chemical dependency treatment at this time.
--- NOTE | 2017-06-18 13:59 | NUR ---
[id number]. nurs Discharge note. Pt verbalizing understanding of her discharge plan to [facility] and outpt appointment with [facility] tomorrow at 9am. Pt has prescriptions that she states she may fill at [facility]. Pt completed safety plan. Pt stating that her goal was to try and work on establishing a new living situation away from [place] Self and family. Pt continued to want to retreat to usual pattern of lying in bed and not participating in unit program or self care planning. Pt continues to intermittently have a smile that she appears to be suppressing and has not wanted to talk about internal stim. that she has possibly been experiencing. Pt reporting that her mother is not replying to phone calls made re. getting impt documents mailed. Pt discharged by cab at 1340 to catch 1410 bus to [place]. Pt has info on directions, bus route numbers and info re resources provided by [facility].
--- NOTE | 2017-06-18 17:58 | NUR ---
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 Patient denies S/I and H/I. She also denies auditory and visual hallucinations. Depression is 0/10 and anxiety is 8/10 "about discharging." Out-patient appointment: [facility], 06/19/17 at 9:00am. A: Patient is cooperative, anxious, hopeful. P: Follow the care plan, coordinate with out-patient providers.
== END 2017-06-18 13:40 | disposition home or self-care (01) | DRG 897 ==
LOC: MHC 05-31 03:46
PROVIDERS: ADMIT Psychiatry & Neurology Psychiatry; ATTEND Psychiatry & Neurology Psychiatry
DX: F15.159 Other stimulant abuse with stimulant-induced psychotic disorder, unspecified (principal); F10.10 Alcohol abuse, uncomplicated; N39.0 Urinary tract infection, site not specified; F17.210 Nicotine dependence, cigarettes, uncomplicated; Z59.0 Homelessness; F15.10 Other stimulant abuse, uncomplicated; F34.1 Dysthymic disorder